=== PATIENT | female | born 1975 | race Caucasian/White ===

== ENCOUNTER 2016-09-28 09:30 | Emergency (ER) | payer MEDICARE ==
[~2016-09-28] VITALS: Ht 157.5 cm; Wt 74.8 kg
[~2016-09-28 09:30] MED LIST: ARIP10TA2 PO; ARIP30TA PO; ATOR20TA66 PO; CLON1TAB2; DIAZ-345 PO; DIAZ5TAB3 PO; ESTR-21 PO; ESTR1TAB24; ESTR2TAB PO; FAMO-119 PO; FENT1PAT11 TD; GUAN2TAB PO; HYDR-2889 PO; HYDR-3820 PO; HYDR50CA3; LAMO100T69 PO; LEVE500T6; LITH600C; LRZ1T; LTH150C; METH10TA3 PO; NF-CYM60C; NITR-65 PO; NSTU5; PHEN-452 PO; PHN100C; PRD20T PO; PRM50SU PR; PROM25TA14 PO; QTP200T; SERT100T PO; SERT50TA; SERT50TA2 PO; SERT50TA9 PO; TERBIN250T PO; VICODIN 7.5/500; ZLP10T; ZOLP10TA PO; ZOLP10TA5 PO
--- OUTSIDE RECORDS SUMMARY | 2016-09-28 09:35 | XMS REPORT | Continuity of Care Document ---
Author Author [facility] Organization [facility] Address Unknown Phone Unavailable Care Team Providers Care Ambulatory Care Coordinator Name Role Phone BillieRic pozo PCP [phone] Source Comments Some departments are not documenting in the electronic medical record. If you do not see the information that you expected, contact Release of Information in the Health Information Management department at [phone] for further assistance in locating additional records.[facility] Active Allergies and Adverse Reactions Allergen Noted Date Severity Reactions Comments Brethine 08/04/2010 SEE COMMENTS "I went in cardiac arrest" Depakote 08/04/2010 UNKNOWN Tegretol 08/04/2010 FEVER, HEADACHE, NAUSEA AND VOMITING Toradol 08/04/2010 HIVES, RASH, ITCHING, REDNESS Trazodone 08/04/2010 SHORTNESS OF BREATH, MENTAL STATUS CHANGES Trileptal 08/04/2010 FEVER, HEADACHE, NAUSEA "senses are heightened, AND VOMITING, SEE can't talk, can't eat" COMMENTS Current Medications Prescription Sig. Disp. Refills Start End Date Status Date estradiol (ESTRACE) 1 mg Take 2 mg by mouth Daily. Active PO tablet hydrOXYzine (ATARAX) 10 Take 50 mg by mouth Three Active mg PO tablet Times Daily. clonazepam (KLONOPIN) 1 Take 1 mg by mouth Three Active mg PO tablet Times Daily. Albuterol (Refill) 90 Inhale 1 [place] by mouth Active mcg/Actuation IN Aero Every 6 Hours as needed. quetiapine (SEROQUEL) 400 Take 400 mg by mouth At 08/04/20 Active mg PO tablet Bedtime Daily. 10 oxycodone/acetaminophen Take 1 Tab by mouth Every 30 Tab 0 08/07/20 Active (PERCOCET) 10/325 mg PO 4 Hours as needed for 10 tablet Pain. lidocaine (LIDODERM) 5 % 1 Patch Every 24 Hours as 30 Patch 0 Active TP topical patch needed (apply for 12 10 hours then remove for 12 hours.). haloperidol (HALDOL) 2 mg Take 1 Tab by mouth Twice 60 Tab 0 08/07/20 Active PO tablet Daily as needed. 10 Active Problems Problem Noted Date Seizures (HCC) 08/04/2010 Social History Tobacco Use Types Packs/Day Years Used Date Never Smoker Smokeless Tobacco: Never Used Alcohol Use Drinks/Week oz/Week Comments No Last Filed Vital Signs Vital Sign Reading Time Taken Blood Pressure 120/84 08/07/2010 4:16 PM [employer] Pulse 87 08/07/2010 4:16 PM [employer] Temperature 37.2 C (99 F) 08/07/2010 4:16 PM [employer] Respiratory Rate - - Height 1.549 m (5' 1") 08/04/2010 12:50 PM [employer] Weight 82.4 kg (181 lb 10.5 oz) 08/04/2010 12:50 PM [employer] Body Mass Index 34.34 08/04/2010 12:50 PM [employer] Oxygen Saturation 97% 08/07/2010 4:16 PM [employer] Plan of Care Health Maintenance Due Date Last Done Comments Physical (Comprehensive) 1984 Exam Pertussis Vaccine 1988 Tetanus Vaccine 1994 Cervical Cancer Screening 1998 Influenza Vaccine 05/20/2016 Results from Last 3 Months Not on file
[2016-09-28] MEDS ORDERED: NS IV 1000 ML 1,000 ML IV ONE (09:37)
[2016-09-28] MEDS ORDERED: LORazepam INJ 2 MG/ML (ATIVAN) VIAL ONE (09:42)
[2016-09-28 09:50] LABS: BASOPHILS % (AUTO) 0 % (0-10); EOSINOPHILS # (AUTO) 0.2 10^3/uL (0.0-0.3); EOSINOPHILS % (AUTO) 4 % (0-10); LYMPHOCYTES # (AUTO) 1.9 X 10^3 (1.0-4.0); LYMPHOCYTES % (AUTO) 35 % (12-44); MEAN CORPUSCULAR HEMOGLOBIN 30 PG (25-34); MEAN CORPUSCULAR HGB CONC 34 G/DL (32-36); MEAN CORPUSCULAR VOLUME 87 FL (80-99); MEAN PLATELET VOLUME 9.2 FL (7.4-10.4); MONOCYTES # (AUTO) 0.3 X 10^3 (0.0-1.0); MONOCYTES % (AUTO) 6 % (0-12); NEUTROPHILS % (AUTO) 54 % (42-75); PLATELET COUNT 286 10^3/uL (130-400); RED BLOOD COUNT 3.98 10^6/uL (4.35-5.85); RED CELL DISTRIBUTION WIDTH 11.7 % (10.0-14.5); WHITE BLOOD COUNT 5.5 10^3/uL (4.3-11.0)
--- NOTE | 2016-09-28 09:58 | ED Neurological Problem ---
General Stated Complaint: SEIZURE ACTIVITY Source: patient Exam Limitations: clinical condition History of Present Illness Time seen by provider: 09:30 Initial Comments Here with report by EMS of having multiple seizures today. EMS did give Versed intranasal which didn't help. Patient reportedly had multiple seizures. On arrival she would follow some commands but had persistent muscle tension in the arms and the legs. She did respond to pain. History otherwise unobtainable from the patient. Previous history shows history of pseudoseizures Timing/Duration: 1/2 hour Severity: moderate Associated Symptoms: seizures Allergies and Home Medications Allergies Coded Allergies: carbamazepine (Unverified Allergy, Unknown, 06/17/11) divalproex sodium (Unverified Allergy, Unknown, 06/10/15) ketorolac (Unverified Allergy, Unknown, 06/10/15) levetiracetam (Unverified Allergy, Unknown, 06/10/15) oxcarbazepine (Unverified Allergy, Unknown, 06/10/15) phenytoin (Unverified Allergy, Unknown, 06/10/15) terbutaline (Verified Adverse Reaction, Severe, 09/03/08) "STOPPED MY BREATHING" trazodone (Verified Adverse Reaction, Intermediate, 09/03/08) "SLOWS MY BREATHING" Home Medications Atorvastatin Calcium 20 Mg Tablet 20 MG PO DAILY (Reported) Diazepam 5 Mg Tablet 1 EACH PO TID (Reported) Estradiol 2 Mg Tablet 2 MG PO DAILY (Reported) Famotidine 20 Mg Tablet #30 20 MG PO BID Prescribed by: LULY REYES on 07/24/152112 Fentanyl 1 Each Patch.td72 100 MCG TD Q72H (Reported) Guanfacine HCl 2 Mg Tablet 2 MG PO HS (Reported) Hydrocodone/Acetaminophen 1 Each Tablet 1 EACH PO QID (Reported) Lamotrigine 100 Mg Tablet 100 MG PO BID (Reported) Methylphenidate HCl 10 Mg Tablet 10 MG PO BID (Reported) Phentermine HCl 30 Mg Capsule 30 MG PO BID (Reported) Prednisone 20 Mg Tab #10 20 MG PO BID Prescribed by: LULY REYES on 07/24/152112 Promethazine HCl 25 Mg Tablet 25 MG PO TID (Reported) Sertraline HCl 100 Mg Tablet 100 MG PO DAILY (Reported) Terbinafine 250 Mg Tab 250 MG PO DAILY (Reported) Zolpidem Tartrate 10 Mg Tablet 10 MG PO HS (Reported) Constitutional: see HPI Other Unable to complete review of systems due to altered mental status and seizures Past Okdglkj-Wmifyt-Smmjzv Hx Patient Social History Smoking Status: Unknown if Ever Smoked Surgeries HX Surgeries: Yes Surgeries: Appendectomy, Section, Gallbladder, Hysterectomy Respiratory Hx Respiratory Disorders: Yes (ASTHMA) Respiratory Disorders: Asthma Cardiovascular Hx Cardiac Disorders: No Neurological Hx Neurological Disorders: Yes Neurological Disorders: Seizure Disorder Reproductive System Hx Reproductive Disorders: Yes 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 Genitourinary Hx Genitourinary Disorders: No Gastrointestinal Hx Gastrointestinal Disorders: Yes Gastrointestinal Disorders: Gastroesophageal Reflux, Chronic Constipation, Pancreatitis, Gall Bladder Disease Musculoskeletal Hx Musculoskeletal Disorders: Yes (CHRONIC GENERALIZED PAIN) Musculoskeletal Disorders: Chronic Back Pain Endocrine Hx Endocrine Disorders: No HEENT HX ENT Disorders: No Cancer Hx Cancer: No Psychosocial Hx Psychiatric Problems: Yes (BI-POLAR, PTSD, OVERDOSES, ADMITTED TO [place] IN PAST) Behavioral Health Disorders: Pseudo Seizures, Anxiety, PTSD, Suicide Attempts, Bipolar, Depression Integumentary HX Skin/Integumentary Disorder: No Blood Transfusions Hx Blood Disorders: No Family Medical History Significant Family History: No Pertinent Family Hx Other History per records review Physical Exam Vital Signs Capillary Refill : General Appearance: WD/WN no apparent distress HEENT: PERRL/EOMI pharynx normal Neck: full range of motion supple Respiratory: lungs clear normal breath sounds Cardiovascular: regular rate, rhythm no murmur Peripheral Pulses: 2+ Dorsalis Pedis (R), 2+ Left Dors-Pedis (L), 2+ Radial Pulses (R), 2+ Radial Pulses (L) Gastrointestinal: non tender soft Skin: normal color warm/dry Comments Patient initially responded somewhat to pain and follows a few simple commands including opening her mouth and eyes for evaluation. After exam, she had persistent flexion of muscles keeping her arms and legs straight. O2 sats remained at 100 percent and heart rate 70. Progress/Results/Core Measures Results/Orders Lab Results Laboratory Tests Test 09/28/16 09:40 09/28/16 10:00 Range/Units Alanine Aminotransferase (ALT/SGPT) 32 0-55 U/L Albumin 4.0 3.2-4.5 G/DL Alkaline Phosphatase 67 40-136 U/L Anion Gap 9 5-14 MMOL/L Aspartate Amino Transf (AST/SGOT) 32 5-34 U/L BUN/Creatinine Ratio 9 Basophils # (Auto) 0.0 0.0-0.1 10^3/uL Basophils (%) (Auto) 0 0-10 % Blood Urea Nitrogen 6 L 7-18 MG/DL Calcium Level 9.0 8.5-10.1 MG/DL Carbon Dioxide Level 22 21-32 MMOL/L Chloride Level 109 H 98-107 MMOL/L Creatinine 0.66 0.60-1.30 MG/DL Eosinophils # (Auto) 0.2 0.0-0.3 10^3/uL Eosinophils (%) (Auto) 4 0-10 % Estimat Glomerular Filtration Rate > 60 Glucose Level 100 70-105 MG/DL Hematocrit 35 35-52 % Hemoglobin 11.8 11.5-16.0 G/DL Lymphocytes # (Auto) 1.9 1.0-4.0 X 10^3 Lymphocytes (%) (Auto) 35 12-44 % Mean Corpuscular Hemoglobin 30 25-34 PG Mean Corpuscular Hemoglobin Concent 34 32-36 G/DL Mean Corpuscular Volume 87 80-99 FL Mean Platelet Volume 9.2 7.4-10.4 FL Monocytes # (Auto) 0.3 0.0-1.0 X 10^3 Monocytes (%) (Auto) 6 0-12 % Neutrophils # (Auto) 3.0 1.8-7.8 X 10^3 Neutrophils (%) (Auto) 54 42-75 % Platelet Count 286 130-400 10^3/uL Potassium Level 3.6 3.6-5.0 MMOL/L Red Blood Count 3.98 L 4.35-5.85 10^6/uL Red Cell Distribution Width 11.7 10.0-14.5 % Serum Test, Qualitative NEGATIVE NEGATIVE Sodium Level 140 135-145 MMOL/L Total Bilirubin 0.1 0.1-1.0 MG/DL Total Protein 7.0 6.4-8.2 G/DL White Blood Count 5.5 4.3-11.0 10^3/uL Ur Tricyclic Antidepressants Screen NEGATIVE NEGATIVE Urine Amphetamines Screen NEGATIVE NEGATIVE Urine Bacteria NEGATIVE /HPF Urine Barbiturates Screen NEGATIVE NEGATIVE Urine Benzodiazepines Screen NEGATIVE NEGATIVE Urine Bilirubin NEGATIVE NEGATIVE Urine Cannabinoids Screen NEGATIVE NEGATIVE Urine Casts NONE /LPF Urine Clarity CLEAR Urine Cocaine Screen NEGATIVE NEGATIVE Urine Color YELLOW Urine Crystals NONE /LPF Urine Culture Indicated NO Urine Glucose (UA) NEGATIVE NEGATIVE Urine Ketones NEGATIVE NEGATIVE Urine Leukocyte Esterase NEGATIVE NEGATIVE Urine Methadone Screen NEGATIVE NEGATIVE Urine Methamphetamines Screen NEGATIVE NEGATIVE Urine Mucus SMALL H /LPF Urine Nitrite NEGATIVE NEGATIVE Urine Opiates Screen POSITIVE H NEGATIVE Urine Oxycodone Screen NEGATIVE NEGATIVE Urine Phencyclidine Screen NEGATIVE NEGATIVE Urine Propoxyphene Screen NEGATIVE NEGATIVE Urine Protein NEGATIVE NEGATIVE Urine RBC NONE /HPF Urine RBC (Auto) NEGATIVE NEGATIVE Urine Specific [place] 1.020 1.016-1.022 Urine Squamous Epithelial Cells 0-2 /HPF Urine Urobilinogen NORMAL NORMAL MG/DL Urine WBC RARE /HPF Urine pH 5 5-9 My Orders Orders-XIOMARA OTTO MD Cbc With Automated Diff (09/28/16 09:37) Comprehensive Metabolic Panel (09/28/16 09:37) Drug Screen Stat (Urine) (09/28/16 09:37) Hcg,Qualitative Serum (09/28/16 09:37) Ua Culture If Indicated (09/28/16 09:37) Saline Lock/Iv-Start (09/28/16 09:37) Ns Iv 1000 Ml (Sodium Chloride 0.9%) (09/28/16 09:37) Lorazepam Injection (Ativan Injection) (09/28/16 09:42) Lorazepam Injection (Ativan Injection) (09/28/16 10:00) Medications Given in ED Current Medications Medications Dose Ordered Sig/[place] Route Start Time Stop Time Status Last Admin Dose Admin Lorazepam 2 mg STK-MED ONCE .ROUTE 09/28/16 09:42 09/28/16 09:50 DC 09/28/16 10:05 2 MG Sodium Chloride 1,000 ml @ 0 mls/hr Q0M ONCE IV 09/28/16 09:37 09/28/16 09:38 DC 09/28/16 10:13 1,000 MLS/HR Progress Note : Progress Note Seen and evaluated on arrival by EMS. Records reviewed after exam. IV, labs, UA and UDS ordered. Patient had persistence of episodes of muscle tightening that is not in the appearance of typical seizures but there is concerns for seizure history. Her computer reviewed does represent pseudoseizures in her history. She is allergic to the typical antiseizure medicines. Ativan 2 mg IV given due to persistence of symptoms. We did evaluate patient for any skin patches including fentanyl patch for which she is known to have. None found. UA obtained via straight catheter. Monitor patient. 1050: Family is here as well as friends. Patient reportedly had multiple seizures and one of these occurred while driving. Overall she is resolved now and talking. She has a doctor in [place] and she will follow-up with him related to seizure medicines. They are adjusting her medicines currently. Patient agreed with follow-up. She will go home with family and will be monitored. Discharged home with return precautions. Patient verbalize understanding instructions and agreement with plan. Departure Impression Impression: Primary Impression: Convulsions Qualified Code: R56.9 - Unspecified convulsions Disposition: HOME, SELF-CARE Condition: Improved Departure-Patient Inst. Decision time for Depature: 10:57 Referrals: NO,LOCAL PHYSICIAN (PCP/Family) Primary Care Physician Patient Instructions: Seizures, Adult (DC) Add. Discharge Instructions: Take home medications as directed. No driving until your cleared by her physician. Do not perform activities increase your risk of injury or risk of injury to other people if a seizure were to occur such as driving, climbing to heights, soaking in a bathtub by herself or other such activities. Return for worse pain, fever, vomiting, weakness, breathing problems or other concerns as needed. Follow-up with your DrGuanaco in one to 2 days. XIOMARA OTTO MD Sep 28, 2016 09:58
[2016-09-28] MEDS ORDERED: LORazepam INJ 2 MG/ML (ATIVAN) VIAL IVP ONE (10:00)
[2016-09-28 10:06] LABS: BILIRUBIN,URINE NEGATIVE (NEGATIVE); KETONES,URINE NEGATIVE (NEGATIVE); LEUKOCYTE ESTERASE ,URINE NEGATIVE (NEGATIVE); NITRITE,URINE NEGATIVE (NEGATIVE); PH,URINE 5 (5-9); PROTEIN,URINE NEGATIVE (NEGATIVE); UROBILINOGEN,URINE NORMAL (NORMAL)
[2016-09-28 10:09] LABS: ALANINE AMINOTRANSFERASE 32 U/L (0-55); ANION GAP 9 MMOL/L (5-14); ASPARTATE AMINO TRANSFERASE 32 U/L (5-34); BILIRUBIN,TOTAL 0.1 MG/DL (0.1-1.0); BLOOD UREA NITROGEN 6 MG/DL (7-18); BUN/CREATININE RATIO 9; CARBON DIOXIDE 22 MMOL/L (21-32); CHLORIDE 109 MMOL/L (98-107); CREATININE SERUM 0.66 MG/DL (0.60-1.30); GFR ESTIMATED > 60; GLUCOSE 100 MG/DL (70-105); POTASSIUM 3.6 MMOL/L (3.6-5.0); SODIUM 140 MMOL/L (135-145)
[2016-09-28 10:31] LABS: SQUAMOUS EPITHELIAL CELL,UR 0-2 /HPF; WBC,URINE RARE /HPF
[2016-09-28 11:15] VITALS: BP 136/87
== END 2016-09-28 11:15 | disposition home or self-care (01) ==
LOC: EDUNIT# 09:30 → ER 09:32
DX: G40.909 Epilepsy, unspecified, not intractable, without status epilepticus (principal); Z79.899 Other long term (current) drug therapy
CPT/HCPCS: 36415; 51701; 80053; 80306; 81000; 84703; 85025; 96361; 96374

== ENCOUNTER 2017-04-04 06:05 | Emergency (ER) | payer MEDICARE ==
[~2017-04-04] VITALS: Ht 180.3 cm; Wt 76.2 kg
[2017-04-04] MEDS ORDERED: BUPR1PAT3 (06:13)
[2017-04-04] MEDS ORDERED: LISI10TA2 (06:13)
[2017-04-04] MEDS ORDERED: fentaNYL INJECTION 100 MCG/2 ML AMP ONE (06:18)
[2017-04-04] MEDS ORDERED: fentaNYL INJECTION 100 MCG/2 ML AMP IVP ONE (06:30)
[2017-04-04 06:35] LABS: MEAN PLATELET VOLUME 9.8 FL (7.4-10.4); RED BLOOD COUNT 4.16 10^6/uL (4.35-5.85); RED CELL DISTRIBUTION WIDTH 12.1 % (10.0-14.5); WHITE BLOOD COUNT 6.4 10^3/uL (4.3-11.0)
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
[2017-04-04] MEDS ORDERED: diphenhydrAMINE 50 MG/ML INJ (BENADRYL) IVP ONE ×2 (06:45→07:45)
[2017-04-04 06:52] LABS: ALANINE AMINOTRANSFERASE 19 U/L (0-55); ALBUMIN 3.9 GM/DL (3.2-4.5); ALCOHOL < 10 MG/DL (<10); ANION GAP 10 MMOL/L (5-14); ASPARTATE AMINO TRANSFERASE 17 U/L (5-34); BILIRUBIN,DIRECT 0.1 MG/DL (0.0-0.3); BILIRUBIN,INDIRECT 0.3 MG/DL; BILIRUBIN,TOTAL 0.4 MG/DL (0.1-1.0); BLOOD UREA NITROGEN 10 MG/DL (7-18); BUN/CREATININE RATIO 16; CALCIUM 9.3 MG/DL (8.5-10.1); CARBON DIOXIDE 24 MMOL/L (21-32); CHLORIDE 104 MMOL/L (98-107); CREATININE SERUM 0.64 MG/DL (0.60-1.30); GFR ESTIMATED > 60; GLUCOSE 101 MG/DL (70-105); SODIUM 138 MMOL/L (135-145); TOTAL PROTEIN 7.1 GM/DL (6.4-8.2)
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
[2017-04-04] MEDS ORDERED: IBUPROFEN 800 MG (MOTRIN) TAB PO ONE (08:45)
[2017-04-04 08:52] LABS: BILIRUBIN,URINE NEGATIVE (NEGATIVE); KETONES,URINE NEGATIVE (NEGATIVE); LEUKOCYTE ESTERASE ,URINE 1+ (NEGATIVE); NITRITE,URINE NEGATIVE (NEGATIVE); PH,URINE 5 (5-9); PROTEIN,URINE NEGATIVE (NEGATIVE); UROBILINOGEN,URINE NORMAL (NORMAL)
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
[2017-04-04 09:03] LABS: SQUAMOUS EPITHELIAL CELL,UR RARE /HPF; WBC,URINE RARE /HPF
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
[2017-04-04] MEDS ORDERED: morphine INJ 10 MG/ML 1ML (SYR OR VIAL) IVP ONE (10:15)
[2017-04-04] MEDS ORDERED: hydrOXYzine (VISTARIL) 25 MG CAP PO ONE (10:15)
[2017-04-04 10:22] VITALS: BP 115/74
== END 2017-04-04 10:22 | disposition home or self-care (01) ==
LOC: EDUNIT# 06:05 → ER 06:07
DX: S22.050A Wedge compression fracture of T5-T6 vertebra, initial encounter for closed fracture (principal); S22.060A Wedge compression fracture of T7-T8 vertebra, initial encounter for closed fracture; M79.605 Pain in left leg; F41.9 Anxiety disorder, unspecified; F43.10 Post-traumatic stress disorder, unspecified; F31.9 Bipolar disorder, unspecified; K21.9 Gastro-esophageal reflux disease without esophagitis; G40.909 Epilepsy, unspecified, not intractable, without status epilepticus; E78.00 Pure hypercholesterolemia, unspecified; I10 Essential (primary) hypertension; J45.909 Unspecified asthma, uncomplicated; Z90.49 Acquired absence of other specified parts of digestive tract; Z90.89 Acquired absence of other organs; Z90.710 Acquired absence of both cervix and uterus; V89.2XXA Person injured in unspecified motor-vehicle accident, traffic, initial encounter
CPT/HCPCS: 36415; 70450; 71010; 72125; 72128; 72131; 72170; 73552; 73562; 73590; 80048; 80076; 80306; 80320; 81000; 84703; 85027; 93041; 96374; 96375; 96376

== ENCOUNTER 2017-04-12 18:07 | Emergency (ER) | payer MEDICARE ==
[~2017-04-12] VITALS: Ht 154.9 cm; Wt 72.6 kg
[~2017-04-12 18:07] MED LIST changes: +BUPR1PAT3; +LISI10TA2
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
[2017-04-12] MEDS ORDERED: LIDO700A45 TP (21:02)
[2017-04-12 21:06] VITALS: BP 0/0
== END 2017-04-12 21:06 | disposition home or self-care (01) ==
LOC: EDUNIT# 18:07 → ER 18:10
DX: M46.1 Sacroiliitis, not elsewhere classified (principal); M79.605 Pain in left leg; F31.9 Bipolar disorder, unspecified; F41.9 Anxiety disorder, unspecified; F43.10 Post-traumatic stress disorder, unspecified; K21.9 Gastro-esophageal reflux disease without esophagitis; K59.09 Other constipation; G40.909 Epilepsy, unspecified, not intractable, without status epilepticus; J45.909 Unspecified asthma, uncomplicated; Z90.710 Acquired absence of both cervix and uterus; Z90.49 Acquired absence of other specified parts of digestive tract; Z91.5 Personal history of self-harm
CPT/HCPCS: 99281

== ENCOUNTER → 2017-12-27 | Outpatient (CLI) | payer BC, MEDICARE ==
[~2017-12-27] MED LIST changes: +HYDR-753 PO; +HYDR100T24 PO; +LIDO700A45 TP; +LISI10TA2 PO; -PHEN-452 PO; +PHEN30CA2 PO
--- NOTE | 2017-12-27 16:54 | Diagnostic Imaging Report ---
EXAMINATION: Magnetic resonance imaging of the left ankle without contrast. DATE: December 27, 2017. COMPARISON: None. HISTORY: 42-year-old female, bulge at the lateral aspect of the left foot/ankle for several months. Increasing pain. TECHNIQUE: Magnetic Resonance Imaging sequences were performed of the ankle without contrast. FINDINGS: TENDONS AND LIGAMENTS: The Achilles tendon is unremarkable. The posterior flexor tendons - tibialis posterior, flexor digitorum longus, flexor hallucis longus - are intact. The peroneal tendons - peroneus longus and peroneus brevis - are intact. The anterior extensor tendons - tibialis anterior, extensor hallucis longus and extensor digitorum longus tendons - are intact. The anterior and posterior syndesmotic ligaments are intact. The anterior talofibular, posterior talofibular, calcaneofibular and deltoid ligaments are intact. The plantar fascia is intact. JOINTS: The ankle mortise is intact. The subtalar and visualized joints of the mid-foot are intact. BONE: The bones all have normal configuration. There is edema-like signal in the lateral aspect of the lower calcaneus which is near the marker denoting the area of focal patient concern with adjacent abnormal signal in the subjacent subcutaneous tissues, which does abut the bone with the overall extent of area of abnormal low T1 signal within the subcutaneous tissues measuring approximately 9 x 5 x 9 mm in size. There is no identified fracture line. There is no identified cortical bone destruction. The additional bone marrow signal is unremarkable. The talar dome is intact. BURSAE AND SOFT TISSUES: As mentioned above, there is a focal and somewhat mass-like area of low T1 signal adjacent to the lateral and inferior aspect of the calcaneus, which is at the area of marked palpable concern. There is adjacent subcutaneous edema as well. Postcontrast imaging was not performed. IMPRESSION: 1. Abnormal but nonspecific somewhat mass-like area of low T1 marrow signal within the subcutaneous tissues adjacent to the lateral and inferior margin of the calcaneus in the region of palpable concern measuring approximately 9 x 5 x 9 mm in extent with adjacent bone marrow edema and no definite cortical bone destruction or periosteal reaction. There is adjacent nonspecific subcutaneous edema. Postcontrast imaging was not performed to assess for potential contrast enhancement. This does limit evaluation for possibility of neoplasm. This abnormal signal in the soft tissues is entirely nonspecific. A neoplastic etiology is difficult to exclude. Bone contusion and potentially stress-related marrow edema would be differential causes for the marrow edema; however, the adjacent somewhat mass-like soft tissue prominence would be unusual for either consideration. Infectious etiology could also be considered, although a definite skin ulcer is not identified. Pre- and post-contrast MRI with targeted field of view at the area of specific patient concern may potentially provide additional diagnostic information. Correlation clinically is also recommended. 2. Additional MRI evaluation of the left ankle is unremarkable. Dictated by: Dictated on workstation # [id number]
== END ==
LOC: RAD 15:30
PROVIDERS: ATTEND Podiatrist Foot & Ankle Surgery
DX: T14.8XXA Other injury of unspecified body region, initial encounter (principal); R60.0 Localized edema

== ENCOUNTER 2017-12-29 11:02 | Outpatient (CLI) | payer BC, MEDICARE ==
[~2017-12-29] VITALS: Ht 154.9 cm; Wt 75.0 kg
[~2017-12-29 11:02] MED LIST changes: -HYDR-753 PO; -HYDR100T24 PO; -LISI10TA2 PO
[2017-12-29] MEDS ORDERED: HYDR100T24 PO (11:18)
[2017-12-29] MEDS ORDERED: DIAZ5TAB3 PO (11:18)
[2017-12-29] MEDS ORDERED: HYDR-753 PO (11:18)
[2017-12-29] MEDS ORDERED: LISI10TA2 PO (11:18)
[2017-12-29 11:31] VITALS: BP 130/92
== END 2017-12-29 12:49 ==
LOC: PREOP 11:02
PROVIDERS: ATTEND Podiatrist Foot & Ankle Surgery
DX: Z01.818 Encounter for other preprocedural examination (principal); L98.9 Disorder of the skin and subcutaneous tissue, unspecified
CPT/HCPCS: 87081

== ENCOUNTER 2018-01-06 11:37 | Day surgery (SDC) | payer BC, MEDICARE ==
[~2018-01-06] VITALS: Ht 154.9 cm; Wt 75.0 kg
[~2018-01-06 11:37] MED LIST changes: +HYDR-753 PO; +HYDR100T24 PO; +LISI10TA2 PO
--- OUTSIDE RECORDS SUMMARY | 2018-01-06 11:41 | XMS REPORT | Encounter Summary ---
Author Author [facility] Organization [facility] Address Unknown Phone Unavailable Care Team Providers Care Privacy Compliance Manager Name Role Phone Ric Maya MD PCP Tami Barr APRN- Unavailable Anika Barrios MD Unavailable Encounter Details Date Type Department Care Team Description 12/21/2017 Ancillary Rad Outpatient, Radiologist Orders [address] [place] [address] Social History Tobacco Use Types Packs/Day Years Used Date Never Smoker Smokeless Tobacco: Never Used Alcohol Use Drinks/Week oz/Week Comments No Sex Assigned at Date Recorded Not on file as of this encounter Plan of Treatment Not on fileas of this encounter Results * GENERAL RAD LOWER EXT EXTERNAL IMAGING (04/04/2017 12:45 AM) Narrative This order has been auto finalized and does not contain a result. * GENERAL RAD LOWER EXT EXTERNAL IMAGING (04/04/2017 12:30 AM) Narrative This order has been auto finalized and does not contain a result. * GENERAL RAD CHEST EXTERNAL IMAGING (04/04/2017 12:15 AM) Narrative This order has been auto finalized and does not contain a result. * CT HEAD EXTERNAL IMAGING (04/04/2017) Narrative This order has been auto finalized and does not contain a result. in this encounter Visit Diagnoses Not on filein this encounter
--- OUTSIDE RECORDS SUMMARY | 2018-01-06 11:41 | XMS REPORT | Clinical Summary ---
Author Author [facility] Organization [facility] Address Unknown Phone Unavailable Care Team Providers Care Spinner Concrete Pipe Name Role Phone Ric Maya MD [facility]CP [facility] Unavailable Anika Barrios MD Unavailable Source Comments Some departments are not documenting in the electronic medical record. If you do not see the information that you expected, contact Release of Information in the Health Information Management department at [phone] for further assistance in locating additional records.[facility] Allergies Active Allergy Reactions Severity Noted Date Comments Terbutaline SEE COMMENTS 08/04/2010 "I went in cardiac arrest" Divalproex UNKNOWN 08/04/2010 Phenytoin Sodium Extended SHORTNESS OF BREATH Medium 12/28/2017 Levetiracetam SHORTNESS OF BREATH High 12/28/2017 Carbamazepine FEVER, HEADACHE, NAUSEA 08/04/2010 AND VOMITING Ketorolac HIVES, RASH, ITCHING, 08/04/2010 REDNESS Trazodone SHORTNESS OF BREATH, 08/04/2010 MENTAL STATUS CHANGES Oxcarbazepine FEVER, HEADACHE, NAUSEA 08/04/2010 "senses are heightened , AND VOMITING, SEE can't talk, can't eat" COMMENTS Current Medications Prescription Sig. Disp. Refills Start End Date Status Date Albuterol (Refill) 90 Inhale 1 Hyrum by mouth Active mcg/Actuation IN Aero Every 6 Hours as needed. HYDROCODONE/ACETAMINOPHEN Take 10 mg by mouth daily Active (NORCO PO) as needed. lisinopril (PRINIVIL; Take 10 mg by mouth Active ZESTRIL) 10 mg tablet daily. HYDROCODONE BITARTRATE Take 100 mg by mouth Active (HYSINGLA ER PO) daily. zolpidem (AMBIEN) 10 mg Take 10 mg by mouth at Active tablet bedtime as needed for Sleep. diazePAM (VALIUM) 10 mg Take 5 mg by mouth every Active tablet 6 hours as needed for Anxiety. estradiol (ESTRACE) 1 mg Take 2 mg by mouth Daily. 12/29/19 Discontin PO tablet 18 ued hydrOXYzine (ATARAX) 10 Take 50 mg by mouth Three 12/29/19 Discontin mg PO tablet Times Daily. 18 ued clonazepam (KLONOPIN) 1 Take 1 mg by mouth Three 12/29/19 Discontin mg PO tablet Times Daily. 18 ued quetiapine (SEROQUEL) 400 Take 400 mg by mouth At 08/04/20 12/29/19 Discontin mg PO tablet Bedtime Daily. 10 18 ued oxycodone/acetaminophen Take 1 Tab by mouth Every 30 Tab 0 08/07/20 12/29/19 Discontin (PERCOCET) 10/325 mg PO 4 Hours as needed for 10 18 ued tablet Pain. lidocaine (LIDODERM) 5 % 1 Patch Every 24 Hours as 30 Patch 0 12/29/19 Discontin TP topical patch needed (apply for 12 10 18 ued hours then remove for 12 hours.). haloperidol (HALDOL) 2 mg Take 1 Tab by mouth Twice 60 Tab 0 08/07/20 12/29/19 Discontin PO tablet Daily as needed. 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 Nonepileptic episode (HCC) 08/04/2010 Encounters Date Type Specialty Care Team Description 12/28/2017 Office Visit Neurology Theodore Holt DO Nonepileptic episode (HCC) (Primary Dx); Bilateral hand numbness; Pain of left lower extremity; Generalized weakness; Somatoform disorder 12/21/2017 Ancillary Radiology Outpatient, Radiologist Orders from Last 3 Months Family History Medical History Relation Name Comments Asthma Father Brian Cancer Father Brian Hodgkin's Heart Attack Father Brian High Cholesterol Father Brian Heart Disease Maternal Grandfather Arthritis-rheumatoid Mother Siomara Depression Mother Siomara Hypertension Mother Siomara Other Mother Siomara Bipolar disorder, anxiety, PTSD Rashes/Skin Problems Mother Siomara Eczema Renal problems Sister Relation Name Status Comments Father Brian Maternal Grandfather Alive Maternal Grandmother Alive Mother Siomara Alive Paternal Grandfather Paternal Grandmother Sister Alive Sister Alive Social History Tobacco Use Types Packs/Day Years Used Date Never Smoker Smokeless Tobacco: Never Used Alcohol Use Drinks/Week oz/Week Comments No Sex Assigned at Date Recorded Not on file Last Filed Vital Signs Vital Sign Reading Time Taken Blood Pressure 130/91 12/28/2017 9:09 AM CDT Pulse 77 12/28/2017 9:09 AM CDT Temperature 36.8 C (98.3 F) 12/28/2017 9:09 AM CDT Respiratory Rate 16 12/28/2017 9:09 AM CDT Oxygen Saturation 95% 12/28/2017 9:09 AM CDT Inhaled Oxygen - - Concentration Weight 74.8 kg (164 lb 12.8 oz) 12/28/2017 9:09 AM CDT Height 154.9 cm (5' 1") 12/28/2017 9:09 AM CDT Body Mass Index 31.14 12/28/2017 9:09 AM CDT Plan of Treatment Health Maintenance Due Date Last Done Comments PHYSICAL (COMPREHENSIVE) 1984 EXAM PERTUSSIS VACCINE 1988 HIV SCREENING 1992 TETANUS VACCINE 1994 CERVICAL CANCER SCREENING 2007 BREAST CANCER SCREENING 2017 INFLUENZA VACCINE 06/19/2018 Results Not on filefrom Last 3 Months
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
--- OUTSIDE RECORDS SUMMARY | 2018-01-06 11:41 | XMS REPORT | Continuity of Care Document ---
Author Author [facility] Organization [facility] Address Unknown Phone Unavailable Care Team Providers Care Rehabilitation Services Counselor Name Role Phone [employer] Unavailable Unavailable Problems Medications Allergies, Adverse Reactions, Alerts Immunizations Results Vital Signs Encounters Location Location Details Encounter Type Encounter Number Reason For Visit Attending Provider ADM Date DC Date Status Source OUTPATIENT [id number] SUSAN GATICA 06/23/2017 Active [facility] OUTPATIENT [id number] VERA HAQ 12/28/2017 Active [facility] O VERA HAQ 05/01/2018 Active [facility] Procedures Plan of Care Social History Assessment and Plan Family History Advance Directives Functional Status
--- OUTSIDE RECORDS SUMMARY | 2018-01-06 11:43 | XMS REPORT ---
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 Office visit Ric Maya MD 08/29/2013 Office visit Ric Maya MD 05/31/2013 Office visit Ric Maya MD 02/28/2013 Office visit Ric Maya MD 10/24/2012 Office visit Ric Maya MD 08/31/2012 Office visit Ric Maya MD 06/15/2012 Office visit KWADWO GARCIA 01/31/2012 Office visit Ric Maya MD 05/27/2011 Office visit Ric Maya MD 08/11/2010 Office visit Ric Maya MD 06/05/2010 Office visit Ric Maya MD 01/08/2010 Office visit Ric Maya MD 10/30/2009 Voided Ric Maya MD 10/30/2009 Office visit Ric Maya MD 10/16/2009 Office visit Ric Maya MD 10/13/2009 Office visit Kwadwo Lynn PA-C
[2018-01-06 11:45] VITALS: BP 137/84
--- OUTSIDE RECORDS SUMMARY | 2018-01-06 11:46 | XMS REPORT ---
Author Author Ric Maya [facility] Address [address] [facility] [address] [place], [place] [id number] Care Team Providers Care Customer Assistance Representative Name Role Phone Ric Maya PCP Ric Maya PreferredProvider Allergies and Adverse Reactions Name Reaction Notes Brethine Depakote Tegretol trazodone Trileptal Plan of Treatment Planned Activity Comments Planned Date Planned Time Plan/Goal Urine Drug Screen 06/11/2015 12:00 AM EMG 06/14/2017 12:00 AM CBC [...] 30 DAYS Ambien 10 mg oral tablet 11/22/2014 TAKE ONE TABLET BY MOUTH EVERY NIGHT AT BEDTIME Ambien 10 mg oral tablet 12/17/2014 TAKE ONE TABLET BY MOUTH AT BEDTIME Ambien 10 mg oral tablet 01/22/2015 TAKE ONE TABLET BY MOUTH AT BEDTIME guanfacine 1 mg oral tablet 04/18/2015 TAKE TWO TABLETS BY MOUTH AT BEDTIME nortriptyline 25 mg oral capsule take 1 capsule (25 mg) by oral route once daily at bedtime Abilify 5 mg oral tablet 10/27/2017 TAKE ONE TABLET BY MOUTH EVERY DAY Ambien 10 mg oral tablet 10/27/2017 take 1 tablet (10 mg) by oral route once daily at bedtime diazepam 5 mg oral tablet 10/27/2017 take 1 tablet (5 mg) by oral route 3 times per day as needed Ventolin HFA 90 mcg/actuation inhalation HFA aerosol inhaler 10/27/2017 inhale 2 puffs (180 mcg) by inhalation route every 6 hours as needed promethazine 25 mg oral tablet 10/27/2017 take 1 tablet (25 mg) by oral route every 4 hours as needed hydrocodone-acetaminophen 10-325 mg oral tablet 12/16/2017 01/15/2018 take 1 tablet by oral route every 6 hours as needed for pain for 30 days Hysingla ER 100 mg oral tablet,oral only,ext.rel.24 hr 12/16/2017 01/15/2018 take 1 tablet (100 mg) by oral route every 24 hours for 30 days Name Start Date Expiration [...] once daily at bedtime for 30 days estradiol 2 mg oral [...] oral route once daily for 30 days Cymbalta 30 mg oral capsule,delayed release(DR/EC) 09/10/2016 09/05/2017 take 1 capsule by oral route daily for 30 days amoxicillin 500 mg oral capsule 11/23/2016 12/08/2016 take 2 capsules by oral route 3 times a day for 5 days promethazine 25 mg oral tablet 05/16/2017 06/18/2017 TAKE ONE TABLET BY MOUTH EVERY 6 HOURS NEEDED Discontinued Name Start Date Discontinued Date SIG [...] bid HYDROCO/APAP 7.5-500TAB 7.5 each 10/08/2010 01/26/2011 [id number] - TAKE ONE TABLET BY MOUTH 4 [...] oral route once daily for 30 days atorvastatin 20 mg oral tablet 10/19/2013 take 1 tablet (20 mg) by oral route once daily for 30 days Butrans 20 mcg/hour transdermal patch weekly 02/14/2014 03/18/2014 APPLY ONE PATCH TO THE SKIN ONCE WEEKLY estradiol 2 mg oral tablet 08/26/2014 TAKE ONE TABLET BY MOUTH EVERY MORNING atorvastatin 20 mg oral tablet 12/23/2014 TAKE ONE TABLET BY MOUTH EVERY DAY FOR 30 DAYS atorvastatin 20 mg oral tablet 01/15/2015 10/27/2017 TAKE ONE TABLET BY MOUTH DAILY FOR 30 DAYS estradiol 2 mg oral tablet 04/14/2015 10/27/2017 TAKE ONE TABLET BY MOUTH EVERY MORNING guanfacine 1 mg oral tablet 05/14/2015 03/09/2017 [...] mcg/hour) by transdermal route every 72 hours Lyrica 150 mg oral capsule 07/14/2017 10/27/2017 take 1 capsule (150 mg) by oral route 2 times per day for 30 days Problem List Description Status Onset Asthma Active Bipolar disorder, unspecified Active Headache Active Seizure disorder Active Hypertension, Benign Essential Active 10/24/2012 Vital Signs Date Time BP-Sys(mm[Hg] BP-Elena(mm[Hg]) HR(bpm) RR(rpm) Temp WT HT HC BMI BSA BMI Percentile O2 Sat(%) 12/16/2017 10:19:00 AM 136 mmHg 88 mmHg 76 bpm 16 rpm 97.8 F 166 lbs 61 in 31.37 kg/m2 1.80 m2 98 % 11/23/2017 10:40:00 AM 116 mmHg 70 mmHg 59 bpm 18 rpm 96.7 F 168.5 lbs 61 in 31.8375 kg/m 1.8137 m 98 % 10/27/2017 3:29:00 PM 126 mmHg 74 mmHg 56 bpm 16 rpm 96.1 F 171.125 lbs 61 in 32.33 kg/m2 1.83 m2 99 % 08/25/2017 9:45:00 AM 122 mmHg 72 mmHg 77 bpm 97.7 F 173 lbs 98 % 07/14/2017 1:47:00 PM 124 mmHg 80 mmHg 56 bpm 14 rpm 97.4 F 169.125 lbs 97 % 06/29/2017 1:13:00 PM 138 mmHg 84 mmHg 78 bpm 14 rpm 97.2 F 166.5 lbs 61 in 31.4596 kg/m 1.8029 m 94 % 06/14/2017 10:21:00 AM 124 mmHg 66 mmHg 68 bpm 18 rpm 96.4 F 169.375 lbs 61 in 32.00 kg/m2 1.82 m2 97 % 05/10/2017 10:45:00 AM 124 mmHg 72 mmHg 71 bpm 18 rpm 96.2 F 168 lbs 61 in 31.743 kg/m 1.811 m 99 % 04/05/2017 1:45:00 PM 118 mmHg 82 mmHg 65 bpm 16 rpm 96.8 F 160 lbs 61 in 30.23 kg/m2 1.77 m2 97 % 03/09/2017 9:32:00 AM 110 mmHg 74 mmHg 62 bpm 16 rpm 7.4 F 160 lbs 61 in 30.2314 kg/m 1.7674 m 97 % 11/23/2016 1:25:00 PM 126 mmHg 68 mmHg 67 bpm 18 rpm 98 F 170.5 lbs 61 in 32.22 kg/m2 1.82 m2 97 % 09/10/2016 9:28:00 AM 132 mmHg 90 mmHg 72 bpm 18 rpm 97.6 F 176 lbs 61 in 33.2546 kg/m 1.8536 m 97 % 06/21/2016 10:08:00 AM 128 mmHg 70 mmHg 85 bpm 17 rpm 96.9 F 163 lbs 61 in 30.80 kg/m2 1.78 m2 98 % 03/18/2016 3:16:00 PM 130 mmHg 70 mmHg 89 bpm 20 rpm 97.4 F 167.25 lbs 61 in 31.6013 kg/m 1.807 m 98 % 11/18/2015 2:46:00 PM 118 mmHg 84 mmHg 68 bpm 17 rpm 97.2 F 152 lbs 61 in 28.72 kg/m2 1.72 m2 98 % 08/25/2015 9:52:00 AM 112 mmHg 72 mmHg 68 bpm 18 rpm 96 F 146 lbs 61 in 27.5862 kg/m 1.6883 m 99 % 06/11/2015 10:22:00 AM 78 bpm [...] EXAM OF KNEE 1 OR 2 Returned 05/10/2017 12:00 AM DXA BONE DENSITY AXIAL Reviewed 05/10/2017 12:00 AM Physical Therapy Consult Reviewed 06/15/2012 12:00 AM THER/PROPH/DIAG INJ SC/IM Reviewed 06/15/2012 12:00 AM Decadron, Per [address] [facility]# [address]-89 Reviewed 06/15/2012 12:00 AM Depo-Medrol, Per [address] [facility]#8971-2449-50 Reviewed 06/15/2012 12:00 AM Rocephin [address] [facility]#8935-1541-36 Reviewed 06/14/2017 12:00 AM COMPLETE CBC W/AUTO DIFF WBC Returned 06/14/2017 12:00 AM COMPREHEN METABOLIC PANEL Returned 06/14/2017 12:00 AM ASSAY THYROID STIM HORMONE Returned 06/14/2017 12:00 AM VITAMIN B-12 Returned 06/29/2017 12:00 AM NRV CNDJ TEST 13/> STUDIES Reviewed 06/29/2017 12:00 AM MUSC TEST DONE W/N TEST COMP Reviewed 10/27/2017 12:00 AM COMPLETE CBC W/AUTO DIFF WBC Returned 10/27/2017 12:00 AM COMPREHEN METABOLIC PANEL Returned 10/27/2017 12:00 AM ASSAY THYROID STIM HORMONE Returned 10/27/2017 12:00 AM ASSAY OF GONADOTROPIN (FSH) Returned 10/27/2017 12:00 AM ASSAY OF GONADOTROPIN (LH) Returned 10/27/2017 12:00 AM ASSAY OF PROGESTERONE Returned 11/21/2012 12:00 AM ROUTINE VENIPUNCTURE Reviewed 02/28/2013 [...] 11/12/2014 12:00 AM Decadron, Per [address] [facility]# [address]-33 Reviewed 11/12/2014 12:00 AM Depo-Medrol, Per [address] [facility]#5995-4695-50 Reviewed 11/12/2014 12:00 AM Rocephin [address] [facility]#1640-3424-14 Reviewed 12/06/2014 12:00 AM THER/PROPH/DIAG INJ SC/IM Reviewed 12/06/2014 12:00 AM Rocephin [address] [facility]#2417-4855-65 Reviewed 12/06/2014 12:00 AM Depo-Medrol [address] [facility]#[address]-52 Reviewed 12/06/2014 12:00 AM Decadron, Per [address] [facility]# [address]-94 Reviewed Results Summary Date and Description Results [...] CVX Influenza 07/23/2014 sanofi pasteur PMC Fluzone OF793ct Intramuscular Left Deltoid 07/23/2014 05/07/2014 141 History [...] 2017 9:49AM Paresthesia Aug 25 2017 9:49AM Seizure Disorder Oct 27 2017 3:31PM Chronic pain Oct 27 2017 3:31PM Menopausal symptoms Oct 27 2017 3:31PM Depression Oct 27 2017 3:31PM Insomnia Oct 27 2017 3:31PM Neuropathy Oct 27 2017 3:31PM Pain of left heel Nov 23 2017 10:42AM Chronic pain Nov 23 2017 10:42AM Chronic pain Dec 16 2017 10:24AM Payers Insurance Name Company Name Plan Name Plan Number Policy Number Policy Group Number Start Date BCBS Bcbs [facility] [id number] N/A Medicare [facility] Medicare [facility] [id number] N/[facility] [id number] N/A Medicare Part B Medicare Of [place] [id number] Tuesday, 2011 Medicare Part A Medicare Part A [id number] September [facility] [id number] Thursday, August 29, 2013 Medicare Part A Medicare - Lab/Xray [id number] September2013 History of Encounters Visit Date Visit Type Provider 12/16/2017 Office visit Ric Maya MD 11/23/2017 Office visit Ric Maya MD 10/27/2017 Office visit Ric Maya MD 08/25/2017 Office visit Jose Reeder DO 07/14/2017 Office visit Ric Maya MD 06/29/2017 Procedures Jose Reeder DO 06/14/2017 Office visit Ric Maya MD 05/10/2017 Office visit Ric Maya MD 04/05/2017 Office visit Ric Maya MD 03/09/2017 Office visit Ric Maya MD 11/23/2016 Office visit Ric Maya MD 09/10/2016 Office visit Ric Maya MD 06/21/2016 Office visit Ric Maya MD 06/15/2016 [facility] Chiquis Carcamo MD 03/18/2016 Office visit Ric Maya MD 11/18/2015 Office visit Ric Maya MD 08/25/2015 Office visit Ric Maya MD 06/11/2015 Office visit Ric Maya MD 05/23/2015 Office visit Ric Maya MD 04/18/2015 Office visit Marcus Lopes APRN 12/23/2014 Office visit Ric Maya MD 12/06/2014 Office visit Marcus Marianne HOFFMAN 11/12/2014 Office visit 11/12/2014 Office visit KWADWO [...]
--- OUTSIDE RECORDS SUMMARY | 2018-01-06 11:48 | XMS REPORT ---
Author Author Jose Reeder Organization [facility] Address [address] [place], [place] [address] Care Team Providers Care Litharge Supervisor Name Role Phone Jose Reeder PCP Ric Maya PreferredProvider Unavailable Allergies and Adverse Reactions Name Reaction Notes Brethine Depakote Tegretol trazodone Trileptal Plan of Treatment Planned Activity Comments Planned Date Planned Time Plan/Goal Urine Drug Screen 06/11/2015 12:00 AM DEXA 05/10/2017 12:00 AM EMG 06/14/2017 12:00 AM Nerve conduction studies; 13 or more studies 06/29/2017 12:00 AM Needle Electromyography, each extremity, complete 06/29/2017 12:00 AM CBC with Auto 11/21/2012 12:00 [...] by oral route once daily at bedtime Lyrica 75 mg oral capsule 03/09/2017 07/07/2017 take 1 capsule (75 mg) by oral route 2 times per day for 30 days Butrans 20 mcg/hour transdermal patch weekly 06/27/2017 apply 1 patch (20 mcg/hour) by transdermal route once weekly Name Start Date Expiration Date SIG Comments [...] 3 times a day for 5 days hydrocodone-acetaminophen 10-325 mg oral tablet 05/10/2017 06/09/2017 take 1- 2 tablets by oral route 4 times a day for 30 days promethazine 25 mg oral tablet 05/16/2017 [...] bid HYDROCO/APAP 7.5-500TAB 7.5 each 10/08/2010 01/26/2011 [id number] - TAKE ONE TABLET BY MOUTH 4 TIMES DAILY NEEDED FOR 30 DAYS mebendazole 100 mg oral tablet,chewable 05/05/2011 05/27/2011 chew 1 tablet ( 100 mg) by oral route as a single dose Zoloft 50 mg oral tablet 05/23/2012 02/28/2013 take 1 tablet (50 mg) by oral route daily Cymbalta 60 mg oral capsule,delayed release(/EC) 08/31/2012 02/28/2013 fabiano 90 mg daily hydrochlorothiazide 25 mg oral tablet 08/31/2012 02/28/2013 take 1 tablet ( 25 mg) by oral route once daily Valium 5 mg oral tablet 11/17/2012 11/30/2012 take 1 tablet by oral route 3 times a day mental health provider PRADEEP 10MG TAB 11/17/2012 11/30/2012 1HS - TAKE [...] Bipolar disorder, unspecified Active Headache Active Seizure Disorder Active Hypertension, Benign Essential Active 10/24/2012 Vital Signs Date Time BP-Sys(mm[Hg] BP-Elena(mm[Hg]) HR(bpm) RR(rpm) Temp WT HT HC BMI BSA BMI Percentile O2 Sat(%) 06/29/2017 1:13:00 PM 138 mmHg 84 mmHg [...] rpm 97.9 F 173 lbs 61 in 32.69 kg/m2 1.8378 m 10/13/2009 2:31:00 PM 124 mmHg [...] 06/15/2012 12:00 AM Decadron, Per [address] [facility]# [address]-08 Reviewed 06/15/2012 12:00 AM Depo-Medrol, Per [address] [facility]#8767-0650-57 Reviewed 06/15/2012 12:00 AM Rocephin [address] [facility]#7884-9817-65 Reviewed 06/14/2017 12:00 AM COMPLETE CBC W/AUTO DIFF WBC Returned 06/14/2017 12:00 AM COMPREHEN METABOLIC PANEL Returned 06/14/2017 12:00 AM ASSAY THYROID STIM HORMONE Returned 06/14/2017 12:00 AM VITAMIN B-12 Returned 11/21/2012 12:00 AM ROUTINE VENIPUNCTURE Reviewed [...] 11/12/2014 12:00 AM Decadron, Per [address] [facility]# [address]-95 Reviewed 11/12/2014 12:00 AM Depo-Medrol, Per [address] [facility]#0203-2050-01 Reviewed 11/12/2014 12:00 AM Rocephin [address] [facility]#4092-2268-27 Reviewed 12/06/2014 12:00 AM THER/PROPH/DIAG INJ SC/IM Reviewed 12/06/2014 12:00 AM Rocephin [address] [facility]#4507-6412-92 Reviewed 12/06/2014 12:00 AM Depo-Medrol [address] [facility]#[address]-54 Reviewed 12/06/2014 12:00 AM Decadron, Per [address] 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 Oct 13 2009 2:33PM Seizure Disorder Oct 16 2009 1:32PM Bipolar disorder, unspecified Oct 16 2009 1:32PM Bipolar disorder, unspecified Post traumatic stress disorder Seizure Disorder Asthma Headache Seizure Disorder Oct 30 2009 [...] 2017 10:22AM Fatigue Jun 14 2017 10:22AM Payers Insurance Name Company Name Plan Name Plan Number Policy Number Policy Group Number Start Date Medicare Part B Medicare [facility] [id number] Tuesday, 2011 Medicare Part A Medicare Part A [id number] September [facility] [employer] [facility] [id number] Thursday, 2013 Medicare Part A Medicare - Lab/Xray [id number] September2013 Medicare RHC Medicare RHC [id number] N/A [facility] [id number] N/A History of Encounters Visit Date Visit Type Provider 06/29/2017 Procedures Jose Reeder DO 06/14/2017 Office [...]
--- OUTSIDE RECORDS SUMMARY | 2018-01-06 11:50 | XMS REPORT ---
Author Author Ric Maya [facility] Address [address] [facility] [address] [place], [place] [id number] Care Team Providers Care Crm Dynamics Developer Name Role Phone Ric Maya PCP Unavailable Ric Maya PreferredProvider Unavailable Allergies and Adverse [...] (20 mcg/hour) by transdermal route once weekly hydrocodone-acetaminophen 10-325 mg oral tablet 07/14/2017 08/13/2017 take 1 -2 tablets by oral route 4 times a day for 30 days Lyrica 150 mg oral capsule 07/14/2017 11/11/2017 [...] bid HYDROCO/APAP 7.5-500TAB 7.5 each 10/08/2010 01/26/2011 [id number] - TAKE ONE TABLET BY MOUTH 4 [...] HC BMI BSA BMI Percentile O2 Sat(%) 07/14/2017 1:47:00 PM 124 mmHg 80 mmHg [...] 06/15/2012 12:00 AM Decadron, Per 1 Mg [facility]# [address]-12 Reviewed 06/15/2012 12:00 AM Depo-Medrol, Per 80 Mg [facility]#9880-1472-08 Reviewed 06/15/2012 12:00 AM Rocephin 1 gram [facility]#4877-7633-16 Reviewed 06/14/2017 12:00 AM COMPLETE CBC W/AUTO [...] 11/12/2014 12:00 AM Decadron, Per 1 Mg [facility]# [address]-10 Reviewed 11/12/2014 12:00 AM Depo-Medrol, Per 80 Mg [facility]#1983-7736-19 Reviewed 11/12/2014 12:00 AM Rocephin 1 gram [place]#4647-1432-80 Reviewed 12/06/2014 12:00 AM THER/PROPH/DIAG INJ SC/IM Reviewed 12/06/2014 12:00 AM Rocephin 1 gram [facility]#0487-6511-63 Reviewed 12/06/2014 12:00 AM Depo-Medrol 80 mg [facility]#[address]-60 Reviewed 12/06/2014 12:00 AM Decadron, Per 1 Mg [facility]# [address]-09 Reviewed Results Summary Date and Description Results [...] CVX Influenza 07/23/2014 sanofi pasteur PMC Fluzone [id number] Intramuscular Left Deltoid 07/23/2014 05/07/2014 141 History [...] 1:49PM Chronic pain Jul 14 2017 1:49PM Payers Insurance Name Company Name Plan Name Plan Number Policy Number Policy Group Number Start Date Medicare RHC Medicare RHC [id number] N/A [facility] [id number] N/A Medicare Part B Medicare Of [place] [id number] Tuesday, 2011 Medicare Part A Medicare Part A [id number] September [employer] [facility] [employer] [facility] [id number] Thursday, 2013 Medicare Part A Medicare - Lab/Xray [id number] September2013 History of Encounters Visit Date Visit Type Provider 07/14/2017 Office visit Ric Maya MD 06/29/2017 Procedures Jose Reeder DO 06/14/2017 Office visit Ric Maya MD 05/10/2017 Office visit Ric Maya MD 04/05/2017 Office visit Ric Maya MD 03/09/2017 Office visit Ric Maya MD 11/23/2016 Office visit Ric Maya MD 09/10/2016 Office visit Ric Maya MD 06/21/2016 Office visit Ric Maya MD 06/15/2016 Shante Carcamo MD 03/18/2016 Office visit Ric Maya [...]
--- OUTSIDE RECORDS SUMMARY | 2018-01-06 11:51 | XMS REPORT ---
Author Author Ric Maya [facility] Address [address] [facility] [address] [place], [place] [address] Care Team Providers Care Clinical Physician Assistant Name Role Phone Ric Maya PCP Ric Maya PreferredProvider Allergies and Adverse Reactions Name Reaction Notes Brethine Depakote Tegretol trazodone Trileptal Plan of Treatment Planned Activity Comments Planned Date Planned Time Plan/Goal Urine Drug Screen 06/11/2015 12:00 AM DEXA 05/10/2017 12:00 AM EMG 06/14/2017 12:00 AM CBC With Auto Differential 10/27/2017 12:00 AM CMP 10/27/2017 12:00 AM Thyroid stimulating hormone (TSH) 10/27/2017 12:00 AM FSH + LH ser 10/27/2017 12:00 AM FSH + LH ser 10/27/2017 12:00 AM Progesterone measurement 10/27/2017 12:00 AM CBC with Auto 11/21/2012 12:00 [...] by oral route once daily at bedtime Hysingla ER 60 mg oral tablet,oral only,ext.rel.24 hr 10/27/2017 11/26/2017 take 1 tablet (60 mg) by oral route every 24 hours for 30 days diazepam 5 mg oral tablet 10/27/2017 take 1 tablet (5 mg) by oral route 3 times per day as needed hydrocodone-acetaminophen 10-325 mg oral tablet 10/27/2017 11/26/2017 take 1 tablet by oral route every 6 hours as needed for pain for 30 days Ventolin HFA 90 mcg/actuation inhalation HFA aerosol inhaler 10/27/2017 inhale 2 puffs (180 mcg) by inhalation route every 6 hours as needed promethazine 25 mg oral tablet 10/27/2017 take 1 tablet (25 mg) by oral route every 4 hours as needed Name Start Date Expiration Date SIG Comments [...] bid HYDROCO/APAP 7.5-500TAB 7.5 each 10/08/2010 01/26/2011 [id number] - TAKE ONE TABLET BY MOUTH 4 [...] HC BMI BSA BMI Percentile O2 Sat(%) 10/27/2017 3:29:00 PM 126 mmHg 74 mmHg [...] 06/15/2012 12:00 AM Decadron, Per 1 Mg [facility]# [address]-82 Reviewed 06/15/2012 12:00 AM Depo-Medrol, Per 80 Mg [facility]#9094-0905-80 Reviewed 06/15/2012 12:00 AM Rocephin 1 gram [facility]#2432-6202-67 Reviewed 06/14/2017 12:00 AM COMPLETE CBC W/AUTO [...] 11/12/2014 12:00 AM Decadron, Per 1 Mg [facility]# [address]-73 Reviewed 11/12/2014 12:00 AM Depo-Medrol, Per 80 Mg [facility]#2195-8177-89 Reviewed 11/12/2014 12:00 AM Rocephin 1 gram [facility]#3075-5890-71 Reviewed 12/06/2014 12:00 AM THER/PROPH/DIAG INJ SC/IM Reviewed 12/06/2014 12:00 AM Rocephin 1 gram [facility]#0350-2739-63 Reviewed 12/06/2014 12:00 AM Depo-Medrol 80 mg [facility]#[address]-75 Reviewed 12/06/2014 12:00 AM Decadron, Per 1 Mg [facility]# [address]-08 Reviewed Results Summary Date and Description Results [...] CVX Influenza 07/23/2014 sanofi pasteur PMC Fluzone [id number] Intramuscular Left Deltoid 07/23/2014 05/07/2014 141 History [...] 3:07PM Chronic pain Apr 18 2015 3:07PM [place], toe Apr 18 2015 3:07PM Chronic pain [...] 2017 3:31PM Neuropathy Oct 27 2017 3:31PM Payers Insurance Name Company Name Plan Name Plan Number Policy Number Policy Group Number [id number] N/A Medicare Part B Medicare Of [place] [id number] Tuesday, 2011 Medicare Part A Medicare Part A [id number] [facility] [id number] Thursday, 2013 Medicare Part A Medicare - Lab/Xray [id number] September2013 Medicare RHC Medicare RHC [id number] N/A [facility] [id number] N/A History of Encounters Visit Date Visit Type Provider 10/27/2017 Office visit Ric Maya MD 08/25/2017 [...] 06/21/2016 Office visit Ric Maya MD 06/15/2016 [facility] Chiquis Carcamo MD 03/18/2016 Office visit Ric Maya MD 11/18/2015 Office visit Ric Maya MD 08/25/2015 Office visit Ric Maya MD 06/11/2015 Office visit Ric Maya MD 05/23/2015 Office visit Ric Maya MD 04/18/2015 Office visit Marcus Loeps APRN 12/23/2014 Office visit Ric Maya MD [...]
--- OUTSIDE RECORDS SUMMARY | 2018-01-06 11:52 | XMS REPORT ---
Author Author Ric Maya [facility] Address [address] [place], [place] [id number] Care Team Providers Care Carver And Checkerer Specials Name Role Phone Ric Maya PCP Ric [...] bid HYDROCO/APAP 7.5-500TAB 7.5 each 10/08/2010 01/26/2011 [id number] - TAKE ONE TABLET BY MOUTH 4 [...] 06/15/2012 12:00 AM Decadron, Per 1 Mg [facility]# [address]-42 Reviewed 06/15/2012 12:00 AM Depo-Medrol, Per 80 Mg [facility]#2697-4747-84 Reviewed 06/15/2012 12:00 AM Rocephin 1 gram [facility]#5702-3816-79 Reviewed 06/14/2017 12:00 AM COMPLETE CBC W/AUTO [...] 11/12/2014 12:00 AM Decadron, Per 1 Mg [facility]# [address]-92 Reviewed 11/12/2014 12:00 AM Depo-Medrol, Per 80 Mg [facility]#4262-7295-49 Reviewed 11/12/2014 12:00 AM Rocephin 1 gram [facility]#8490-9056-15 Reviewed 12/06/2014 12:00 AM THER/PROPH/DIAG INJ SC/IM Reviewed 12/06/2014 12:00 AM Rocephin 1 gram [facility]#3053-8820-99 Reviewed 12/06/2014 12:00 AM Depo-Medrol 80 mg [place]#[address]-42 Reviewed 12/06/2014 12:00 AM Decadron, Per 1 Mg [facility]# [address]-51 Reviewed Results Summary Date and Description Results [...] Vis Given Vis Pub CVX Influenza 07/23/2014 addie lorenzo PMC Fluzone [id number] Intramuscular Left Deltoid 07/23/2014 05/07/2014 141 History [...] Paresthesia of skin Jun 29 2017 1:16PM Payers Insurance Name Company Name Plan Name Plan Number Policy Number Policy Group Number Start Date Medicare RHC Medicare RHC [id number] N/A [facility] [id number] N/A Medicare Part B Medicare Of [place] [id number] Tuesday, 2011 Medicare Part A Medicare Part A [id number] September [facility] [id number] Thursday, 2013 Medicare Part A Medicare - Lab/Xray [id number] September2013 History of Encounters Visit Date Visit Type Provider 07/14/2017 Office visit Ric Maya MD 06/29/2017 Procedures Jose Reeder DO 06/14/2017 Office visit Ric Maya MD 05/10/2017 Office visit Ric Maya MD 04/05/2017 Office visit Ric Maya MD 03/09/2017 Office visit Ric Maya MD 11/23/2016 Office visit Ric Maya MD 09/10/2016 Office visit Ric Maya MD 06/21/2016 Office visit Ric Maya MD 06/15/2016 [facility] Chiquis Carcamo MD 03/18/2016 Office [...]
--- OUTSIDE RECORDS SUMMARY | 2018-01-06 11:54 | XMS REPORT ---
Author Author Ric Maya [facility] Address [address] [place], [place] [address] Care Team Providers Care Castings Trimmer Name Role Phone Ric Maya PCP Unavailable Ric Maya PreferredProvider Unavailable Allergies and Adverse Reactions Name Reaction Notes Brethine Depakote Tegretol trazodone Trileptal Plan of Treatment Planned Activity Comments Planned Date Planned Time Plan/Goal Urine Drug Screen 06/11/2015 12:00 AM DEXA 05/10/2017 12:00 AM CBC with Auto 11/21/2012 12:00 [...] TAKE TWO TABLETS BY MOUTH AT BEDTIME promethazine 25 mg oral tablet 08/25/2015 take 1 tablet (25 mg) by oral route every 6 hours as needed diazepam 5 mg oral tablet 06/22/2016 take 1 tablet (5 mg) by oral route 3 times per day as needed Ventolin HFA 90 mcg/actuation inhalation HFA aerosol inhaler 08/24/2016 inhale 2 puffs (180 mcg) by inhalation route every 6 hours as needed Cymbalta 30 mg oral capsule,delayed release(/EC) 09/10/2016 09/05/2017 take 1 capsule by oral [...] days Butrans 20 mcg/hour transdermal patch weekly 05/10/2017 apply 1 patch (20 mcg/hour) by transdermal route once weekly hydrocodone-acetaminophen 10-325 mg oral tablet 05/10/2017 06/09/2017 take 1- 2 tablets by oral route 4 times a day for 30 days Name Start Date [...] 3 times a day for 5 days Discontinued Name Start Date Discontinued Date [...] bid HYDROCO/APAP 7.5-500TAB 7.5 each 10/08/2010 01/26/2011 [id number] - TAKE ONE TABLET BY MOUTH 4 [...] HC BMI BSA BMI Percentile O2 Sat(%) 05/10/2017 10:45:00 AM 124 mmHg 72 mmHg [...] rpm 97.6 F 155 lbs 61 in 29.29 kg/m2 1.7395 m 05/31/2013 9:00:00 AM 120 mmHg 78 mmHg 81 bpm 16 rpm 98.2 F 176 lbs 61 in 33.2546 kg/m 1.85 m2 98 % 02/28/2013 8:35:00 AM 140 mmHg 96 mmHg 72 bpm 18 rpm 97.4 F 188 lbs 61 in 35.52 kg/m2 1.9158 m 10/24/2012 10:41:00 AM 156 mmHg 102 mmHg 100 bpm 20 rpm 97.9 F 181 lbs 61 in 34.1993 kg/m 1.88 m2 08/31/2012 1:58:00 PM 130 mmHg 90 mmHg 88 bpm 18 rpm 96.3 F 189 lbs 61 in 35.71 kg/m2 1.9209 m 06/15/2012 2:55:00 PM 132 mmHg 74 mmHg 77 bpm 20 rpm 98.5 F 186 lbs 61 in 35.144 kg/m 1.91 m2 97 % 01/31/2012 2:30:00 PM 128 mmHg 84 mmHg 68 bpm 20 rpm 97.8 F 196 lbs 61 in 37.03 kg/m2 1.9561 m 05/27/2011 3:23:00 PM 130 mmHg 82 mmHg 64 bpm 18 rpm 97.1 F 195 lbs 61 in 36.8445 kg/m 1.95 m2 08/11/2010 10:59:00 AM 108 mmHg [...] 06/15/2012 12:00 AM Decadron, Per 1 Mg [facility] [address]-37 Reviewed 06/15/2012 12:00 AM Depo-Medrol, Per 80 Mg [facility]#3653-3594-15 Reviewed 06/15/2012 12:00 AM Rocephin 1 gram [facility]#3638-5364-54 Reviewed 11/21/2012 12:00 AM ROUTINE VENIPUNCTURE Reviewed [...] 11/12/2014 12:00 AM Decadron, Per 1 Mg [facility]# [address]-07 Reviewed 11/12/2014 12:00 AM Depo-Medrol, Per 80 Mg [facility]#3274-5950-31 Reviewed 11/12/2014 12:00 AM Rocephin 1 gram [facility]#2446-5787-38 Reviewed 12/06/2014 12:00 AM THER/PROPH/DIAG INJ SC/IM Reviewed 12/06/2014 12:00 AM Rocephin 1 gram [facility]#2557-4158-33 Reviewed 12/06/2014 12:00 AM Depo-Medrol 80 mg [facility]#[address]-90 Reviewed 12/06/2014 12:00 AM Decadron, Per 1 Mg [facility]# [address]-54 Reviewed Results Summary Date and Description Results 10/30/2009 9:22 AM GLUCOSE 91 SODIUM 137.0 mmol/LPOTASSIUM 3.60 mmol/LCHLORIDE 101.0 mmol/LCO2 26.0 mmol/LBUN 6.0 mg/dLCREATININE 0.60 mg/dLCALCIUM 8.80 mg/ dLAGE 34 GFR NonAA 116 GFR AA 141 eGFR >60 mL/min/1.73 meGFR AA* >60 05/21/2010 4:20 PM PHENYTOIN 5.50 ug/mL 02/28/2013 9:46 AM WBC 10.6 RBC 4.70 HGB 14.10 g/dLHCT 41.30 %MCV 88.0 fLMCH 30.0 pgMCHC 34.10 g/dLRDW SD 38 RDW CV 11.90 %MPV 9.60 fLPLT 317 NRBC# 0.00 NRBC % 0.0 %NEUT 64.70 %%LYMP 29.0 %%MONO 4.10 %%EOS 2.0 %%BASO 0.20 %#NEUT 6.87 # LYMP 3.07 #MONO 0.43 #EOS 0.21 #BASO 0.02 MANUAL DIFF NOT IND TSH 1.360 uIU/ mLGLUCOSE 99.0 mg/dLSODIUM 137.0 mmol/LPOTASSIUM 3.60 mmol/LCHLORIDE 94.0 mmol/ LCO2 25.0 mmol/LBUN 12.0 mg/dLCREATININE 0.60 mg/dLSGOT/AST 17.0 IU/LSGPT/ALT 17.0 IU/LALK PHOS 66.0 IU/LTOTAL PROTEIN 8.30 g/dLALBUMIN 4.20 g/dLTOTAL BILI 0.20 mg/dLCALCIUM 10.20 mg/dLAGE 37 GFR NonAA 114 GFR AA 138 eGFR 60 eGFR AA* 60 TRIGLYCERIDES 973.0 mg/dLCHOLESTEROL 307.0 mg/dLHDL 50.0 mg/dLTOT CHOL/HDL 6.1 LDL (CALC) INVALID MG/DL TRIG 05/31/2013 10:30 AM WBC 5.4 RBC 4.49 HGB 13.60 g/dLHCT 38.80 %MCV 86.0 fLMCH 30.30 pgHC 35.10 g/dLRDW SD 39 RDW CV 12.30 [...] 4.25 HGB 13.0 g/dLHCT 38.40 %MCV 90.0 fLH 30.60 pgMCHC 33.90 g/dLRDW SD 45 RDW [...] 0.10 #BASO 0.02 MANUAL DIFF NOT IND COLOR YELLOW APPEARANCE HAZY SPEC GRAV >=1.030 pH 5.5 PROTEIN NEGATIVE GLUCOSE NEGATIVE mg/dLKETONE NEGATIVE BILIRUBIN NEGATIVE BLOOD NEGATIVE NITRITE NEGATIVE LEUK SCREEN NEGATIVE WBC/HPF RARE RBC/HPF NEGATIVE CASTS/LPF NEGATIVE / LPFCRYSTALS NEGATIVE MUCOUS THRDS NEGATIVE BACTERIA FEW EPITH CELLS FEW SQUAMOUS /HPFTRICHOMONAS NEGATIVE YEAST NEGATIVE CULT ORDERED YES GLUCOSE 100.0 mg/dLSODIUM 138.0 mmol/LPOTASSIUM 3.90 mmol/LCHLORIDE 102.0 mmol/LCO2 28.0 mmol/ LBUN 12.0 mg/dLCREATININE 0.70 mg/dLSGOT/AST 13.0 IU/LSGPT/ALT 13.0 IU/LALK PHOS 59.0 IU/LTOTAL PROTEIN 7.50 g/dLALBUMIN 4.30 g/dLTOTAL BILI 0.40 mg/ dLCALCIUM 9.0 mg/dLAGE 39 GFR NonAA 94 GFR AA 114 eGFR >60 mL/min/1.73meGFR AA * >60 Prolactin 35.60 ng/mL History Of Immunizations Name Date Admin Mfg Name Mfg Code Trade Name Lot# Route Inj Vis Given Vis Pub CVX Influenza 07/23/2014 [facility] PMC Fluzone [id number] Intramuscular Left Deltoid 07/23/2014 05/07/2014 141 History [...] Low Back Pain May 10 2017 10:47AM Payers Insurance Name Company Name Plan Name Plan Number Policy Number Policy Group Number Start Date Medicare RHC Medicare RHC [id number] N/A [facility] [id number] N/A Medicare Part B Medicare Of [place] [id number] Tuesday, 2011 Medicare Part A Medicare Part A [id number] September [facility] [employer] Claims Center [id number] Thursday, 2013 Medicare Part A Medicare - Lab/Xray [id number] September2013 History of Encounters Visit Date Visit Type Provider 05/10/2017 Office visit Ric Maya MD 04/05/2017 Office visit Ric Maya MD 03/09/2017 Office visit Ric Maya MD 11/23/2016 Office visit Ric Maya MD 09/10/2016 Office visit Ric Maya MD 06/21/2016 Office visit Ric Maya MD 06/15/2016 [facility] Chiquis Carcamo MD 03/18/2016 Office visit Ric [...]
--- OUTSIDE RECORDS SUMMARY | 2018-01-06 11:55 | XMS REPORT ---
Author Author Ric Maya [facility] Address [address] [place], [place] [address] Care Team Providers Care Intranet Developer Name Role Phone Ric Maya PCP Unavailable Ric Maya PreferredProvider Unavailable Allergies and Adverse Reactions Name Reaction Notes Brethine Depakote Tegretol trazodone Trileptal Plan of Treatment Planned Activity Comments Planned Date Planned Time Plan/Goal Urine Drug Screen 06/11/2015 12:00 AM Knee 1 or 2 Views - Main 04/05/2017 12:00 AM CBC with Auto 11/21/2012 12:00 [...] bedtime Butrans 20 mcg/hour transdermal patch weekly 03/09/2017 apply 1 patch (20 mcg/hour) by transdermal route once weekly hydrocodone-acetaminophen 10-325 mg oral tablet 03/09/2017 04/08/2017 take 1- 2 tablets by oral route 4 times a day for 30 days Lyrica 75 mg oral capsule 03/09/2017 07/07/2017 [...] bid HYDROCO/APAP 7.5-500TAB 7.5 each 10/08/2010 01/26/2011 [id number] - TAKE ONE TABLET BY MOUTH 4 [...] HC BMI BSA BMI Percentile O2 Sat(%) 04/05/2017 1:45:00 PM 118 mmHg 82 mmHg [...] rpm 95.3 F 143.125 lbs 61 in 27.043 kg/m 1.67 m2 97 % 07/23/2014 2:10:00 PM 142 mmHg 90 mmHg 78 bpm 16 rpm 98.2 F 143 lbs 61 in 27.02 kg/m2 1.6708 m 03/18/2014 2:41:00 PM 128 mmHg 78 mmHg 74 bpm 18 rpm 98.3 F 137 lbs 61 in 25.8857 kg/m 1.64 m2 10/19/2013 10:57:00 AM 122 mmHg 80 mmHg 78 bpm 18 rpm 97.1 F 153 lbs 09/27/2013 9:42:00 AM 122 mmHg 80 mmHg 72 bpm 18 rpm 98 F 151 lbs 61 in 28.5309 kg/m 1.72 m2 08/29/2013 11:09:00 AM 100 mmHg [...] 10/30/2009 12:00 AM QUANTITATIVE ASSAY DRUG Reviewed 06/15/2012 12:00 AM THER/PROPH/DIAG INJ SC/IM Reviewed 06/15/2012 12:00 AM Decadron, Per 1 Mg [facility]# [address]-48 Reviewed 06/15/2012 12:00 AM Depo-Medrol, Per 80 Mg [facility]#5213-8659-46 Reviewed 06/15/2012 12:00 AM Rocephin 1 gram [facility]#3629-3170-44 Reviewed 11/21/2012 12:00 AM ROUTINE VENIPUNCTURE Reviewed [...] 11/12/2014 12:00 AM Decadron, Per 1 Mg [facility]# [address]-51 Reviewed 11/12/2014 12:00 AM Depo-Medrol, Per 80 Mg [facility]#0496-5688-81 Reviewed 11/12/2014 12:00 AM Rocephin 1 gram [facility]#4823-8995-39 Reviewed 12/06/2014 12:00 AM THER/PROPH/DIAG INJ SC/IM Reviewed 12/06/2014 12:00 AM Rocephin 1 gram [facility]#9186-3001-14 Reviewed 12/06/2014 12:00 AM Depo-Medrol 80 mg [facility]#[address]-18 Reviewed 12/06/2014 12:00 AM Decadron, Per 1 Mg [facility]# [address]-52 Reviewed Results Summary Date and Description Results [...] CVX Influenza 07/23/2014 sanofi pasteur PMC Fluzone [id number] Intramuscular Left Deltoid 07/23/2014 05/07/2014 141 History [...] Knee pain, left Apr 05 2017 1:47PM Payers Insurance Name Company Name Plan Name Plan Number Policy Number Policy Group Number Start Date Medicare RHC Medicare RHC [id number] N/A [facility] Mikie Nicholsy-Fhp [id number] N/A Medicare Part B Medicare Of [place] [id number] Tuesday, 2011 Medicare Part A Medicare Part A [id number] September [facility] [employer] Claims Center [id number] Thursday, 2013 Medicare Part A Medicare - Lab/Xray [id number] September2013 History of Encounters Visit Date Visit Type Provider 04/05/2017 Office visit Ric Maya MD 03/09/2017 Office visit Ric Maya MD 11/23/2016 Office visit Ric Maya MD 09/10/2016 Office visit Ric Maya MD 06/21/2016 Office visit Ric Maya MD 06/15/2016 [facility] Gokul Carcamo MD 03/18/2016 Office visit Ric Maya [...]
[2018-01-06] MEDS ORDERED: BUPIVACAINE 0.5% 30 ML (SENSORCAINE) VIAL ONE (11:59)
[2018-01-06] MEDS ORDERED: ceFAZolin INJECTION 1,000 MG in NS (IVPB) 100 ML IV ONE (12:00)
[2018-01-06] MEDS ORDERED: LIDOCAINE 1% INJ 20 ML 20 ML VIAL ONE (12:00)
--- OUTSIDE RECORDS SUMMARY | 2018-01-06 12:03 | XMS REPORT ---
Author Author Ric Maya [facility] Address [address] [place], [place] [address] Care Team Providers Care Boom Man Name Role Phone Rci Maya PCP Ric Maya PreferredProvider Allergies and [...] as needed hydrocodone-acetaminophen 10-325 mg oral tablet 11/23/2017 12/23/2017 take 1 tablet by oral route every 6 hours as needed for pain for 30 days Hysingla ER 80 mg oral tablet,oral only,ext.rel.24 hr 11/23/2017 12/23/2017 take 1 tablet (80 mg) by oral route every 24 hours [...] bid HYDROCO/APAP 7.5-500TAB 7.5 each 10/08/2010 01/26/2011 [id number] - TAKE ONE TABLET BY MOUTH 4 [...] HC BMI BSA BMI Percentile O2 Sat(%) 11/23/2017 10:40:00 AM 116 mmHg 70 mmHg 59 bpm 18 rpm 96.7 F 168.5 lbs 61 in 31.84 kg/m2 1.81 m2 98 % 10/27/2017 3:29:00 PM 126 mmHg 74 mmHg 56 bpm 16 rpm 96.1 F 171.125 lbs 61 in 32.3335 kg/m 1.8278 m 99 % 08/25/2017 9:45:00 AM 122 mmHg [...] Per 1 Mg [facility]# [address]-07 Reviewed 06/15/2012 12:00 AM Depo-Medrol, Per 80 Mg [facility]#8951-8221-04 Reviewed 06/15/2012 12:00 AM Rocephin 1 gram [facility]#7268-8139-79 Reviewed 06/14/2017 12:00 AM COMPLETE CBC W/AUTO [...] Per 1 Mg [facility]# [address]-14 Reviewed 11/12/2014 12:00 AM Depo-Medrol, Per 80 Mg [facility]#8275-4130-91 Reviewed 11/12/2014 12:00 AM Rocephin 1 gram [facility]#5671-2080-60 Reviewed 12/06/2014 12:00 AM THER/PROPH/DIAG INJ SC/IM Reviewed 12/06/2014 12:00 AM Rocephin 1 gram [facility]#9869-9516-67 Reviewed 12/06/2014 12:00 AM Depo-Medrol 80 mg [facility]#[address]-24 Reviewed 12/06/2014 12:00 AM Decadron, Per 1 Mg [facility]# [address]-48 Reviewed Results Summary Date and Description Results [...] CVX Influenza 07/23/2014 sanofi pasteur PMC Fluzone [id number] Intramuscular Left Deltoid 07/23/2014 05/07/2014 141 History [...] 10:42AM Chronic pain Nov 23 2017 10:42AM Payers Insurance Name Company Name Plan Name Plan Number Policy Number Policy Group Number Start Date BCBS Bcbs [place] [id number] N/A Medicare [facility] Medicare [facility] [id number] N/A [facility] [id number] N/A Medicare Part B Medicare Of [place] [id number] Tuesday, 2011 Medicare Part A Medicare Part A [id number] September [employer] [facility] [id number] Thursday, 2013 Medicare Part A Medicare - Lab/Xray [id number] September2013 History of Encounters Visit Date Visit Type Provider 11/23/2017 Office visit Ric Maya MD 10/27/2017 [...] 06/21/2016 Office visit Ric Maya MD 06/15/2016 [facility] Chiquis Carcamo MD 03/18/2016 Office visit [...]
--- OUTSIDE RECORDS SUMMARY | 2018-01-06 12:04 | XMS REPORT ---
Author Author Jose Reeder Organization [facility] Address [address] [facility] [address] [place], [place] [address] Care Team Providers Care Process Laboratory Specialist Name Role Phone Jose Reeder PCP Ric [...] bid HYDROCO/APAP 7.5-500TAB 7.5 each 10/08/2010 01/26/2011 [id number] - TAKE ONE TABLET BY MOUTH 4 [...] Mg [facility]# [address]-45 Reviewed 06/15/2012 12:00 AM Depo-Medrol, Per 80 Mg [facility]#9423-1468-32 Reviewed 06/15/2012 12:00 AM Rocephin 1 gram [facility]#3207-5361-34 Reviewed 06/14/2017 12:00 AM COMPLETE CBC W/AUTO [...] Mg [facility]# [address]-19 Reviewed 11/12/2014 12:00 AM Depo-Medrol, Per 80 Mg [facility]#1854-4060-41 Reviewed 11/12/2014 12:00 AM Rocephin 1 gram [facility]#0288-6167-27 Reviewed 12/06/2014 12:00 AM THER/PROPH/DIAG INJ SC/IM Reviewed 12/06/2014 12:00 AM Rocephin 1 gram [facility]#9227-6817-87 Reviewed 12/06/2014 12:00 AM Depo-Medrol 80 mg [facility]#[address]-13 Reviewed 12/06/2014 12:00 AM Decadron, Per 1 Mg [facility]# [address]-18 Reviewed Results Summary Date and Description Results [...] CVX Influenza 07/23/2014 sanofi pasteur PMC Fluzone [id number] Intramuscular Left Deltoid 07/23/2014 05/07/2014 141 History [...] Date Medicare Part B Medicare Of [place] [id number] Tuesday, 2011 Medicare Part A Medicare Part A [id number] September [facility] Claims [place] [id number] Thursday, 2013 Medicare Part A Medicare - Lab/Xray [id number] September2013 Medicare RHC Medicare RHC [id number] N/A [facility] [id number] N/A History of Encounters Visit Date Visit [...] 06/21/2016 Office visit Ric Maya MD 06/15/2016 [facility] Chiquis Carcamo MD 03/18/2016 Office visit [...]
--- OUTSIDE RECORDS SUMMARY | 2018-01-06 12:05 | XMS REPORT ---
Author Author Ric Maya [facility] Address [address] [facility] [address] [place], [place] [address] Care Team Providers Care Cold Roll Packer Sheet Iron Name Role Phone Ric Maya PCP Ric [...] as needed hydrocodone-acetaminophen 10-325 mg oral tablet 01/03/2018 02/02/2018 take 1 tablet by oral route every 6 hours as needed for pain for 30 days Hysingla ER 120 mg oral tablet,oral only,ext.rel.24 hr 01/03/2018 02/02/2018 take 1 tablet (120 mg) by oral route every 24 hours [...] oral route every 6 hours as needed ATIVAN 1MG TAB 1 each 10/30/2010 11/29/2010 [...] bid HYDROCO/APAP 7.5-500TAB 7.5 each 10/08/2010 01/26/2011 [id number] - TAKE ONE TABLET BY MOUTH 4 [...] HC BMI BSA BMI Percentile O2 Sat(%) 01/03/2018 1:43:00 PM 118 mmHg 76 mmHg 77 bpm 18 rpm 99 F 162.25 lbs 61 in 30.6566 kg/m 1.7797 m 95 % 12/16/2017 10:19:00 AM 136 mmHg 88 mmHg [...] rpm 97.6 F 138 lbs 61 in 26.07 kg/m2 1.64 m2 98 % 04/18/2015 3:06:00 PM 108 mmHg 70 mmHg 76 bpm 16 rpm 140 lbs 61 in 26.4525 kg/m 1.6532 m 97 % 12/23/2014 2:38:00 PM 128 mmHg 82 mmHg 64 bpm 16 rpm 97.4 F 145 lbs 61 in 27.40 kg/m2 1.68 m2 12/06/2014 3:04:00 PM 110 mmHg 85 mmHg 64 bpm 18 rpm 97.6 F 144 lbs 61 in 27.2083 kg/m 1.6767 m 97 % 11/12/2014 11:38:00 AM 100 mmHg 68 mmHg 65 bpm 18 rpm 146.5 lbs 60 in 28.61 kg/m2 1.68 m2 96 % 10/11/2014 11:29:00 AM 110 mmHg 80 mmHg 58 bpm 20 rpm 95.3 F 143.125 lbs 61 in 27.043 kg/m 1.6716 m 97 % 07/23/2014 2:10:00 PM 142 mmHg 90 mmHg 78 bpm 16 rpm 98.2 F 143 lbs 61 in 27.02 kg/m2 1.67 m2 03/18/2014 2:41:00 PM 128 mmHg 78 mmHg 74 bpm 18 rpm 98.3 F 137 lbs 61 in 25.8857 kg/m 1.6354 m 10/19/2013 10:57:00 AM 122 mmHg 80 mmHg 78 bpm 18 rpm 97.1 F 153 lbs 09/27/2013 9:42:00 AM 122 mmHg 80 mmHg 72 bpm 18 rpm 98 F 151 lbs 61 in 28.5309 kg/m 1.7169 m 08/29/2013 11:09:00 AM 100 mmHg 62 mmHg 84 bpm 18 rpm 97.6 F 155 lbs 61 in 29.29 kg/m2 1.74 m2 05/31/2013 9:00:00 AM 120 mmHg 78 mmHg 81 bpm 16 rpm 98.2 F 176 lbs 61 in 33.2546 kg/m 1.8536 m 98 % 02/28/2013 8:35:00 AM 140 mmHg 96 mmHg 72 bpm 18 rpm 97.4 F 188 lbs 61 in 35.52 kg/m2 1.92 m2 10/24/2012 10:41:00 AM 156 mmHg 102 mmHg 100 bpm 20 rpm 97.9 F 181 lbs 61 in 34.1993 kg/m 1.8798 m 08/31/2012 1:58:00 PM 130 mmHg 90 mmHg 88 bpm 18 rpm 96.3 F 189 lbs 61 in 35.71 kg/m2 1.92 m2 06/15/2012 2:55:00 PM 132 mmHg 74 mmHg 77 bpm 20 rpm 98.5 F 186 lbs 61 in 35.144 kg/m 1.9056 m 97 % 01/31/2012 2:30:00 PM 128 mmHg 84 mmHg 68 bpm 20 rpm 97.8 F 196 lbs 61 in 37.03 kg/m2 1.96 m2 05/27/2011 3:23:00 PM 130 mmHg 82 mmHg 64 bpm 18 rpm 97.1 F 195 lbs 61 in 36.8445 kg/m 1.9511 m 08/11/2010 10:59:00 AM 108 mmHg 78 mmHg [...] 12:00 AM Decadron, Per 1 Mg [facility]# [address]-62 Reviewed 06/15/2012 12:00 AM Depo-Medrol, Per 80 Mg [facility]#7534-1073-32 Reviewed 06/15/2012 12:00 AM Rocephin 1 gram [facility]#0028-9[address]-91 Reviewed 06/14/2017 12:00 AM COMPLETE CBC W/AUTO [...] 12:00 AM Decadron, Per 1 Mg [facility]# [address]-72 Reviewed 11/12/2014 12:00 AM Depo-Medrol, Per 80 Mg [facility]#1105-4080-12 Reviewed 11/12/2014 12:00 AM Rocephin 1 gram [facility]#7927-0361-28 Reviewed 12/06/2014 12:00 AM THER/PROPH/DIAG INJ SC/IM Reviewed 12/06/2014 12:00 AM Rocephin 1 gram [facility]#3644-0281-53 Reviewed 12/06/2014 12:00 AM Depo-Medrol 80 mg [facility]#[address]-89 Reviewed 12/06/2014 12:00 AM Decadron, Per 1 Mg [facility]# [address]-40 Reviewed Results Summary Date and Description Results [...] Pub CVX Influenza 07/23/2014 sanofi pasteur PMC FLUZONE [id number] Intramuscular Left Deltoid 07/23/2014 05/07/2014 141 History [...] 10:42AM Chronic pain Dec 16 2017 10:24AM Benign skin lesion Jan 03 2018 1:44PM Foot pain, left Jan 03 2018 1:44PM Preop examination Jan 03 2018 1:44PM Payers Insurance Name Company Name Plan Name Plan Number Policy Number Policy Group Number Start Date [id number] N/A Medicare RHC Medicare RHC [id number] N/A [facility] [id number] N/A Medicare Part B Medicare Of [place] [id number] Tuesday, 2011 Medicare Part A Medicare Part A [id number] September [facility] [employer] Claims [facility] [id number] Thursday, 2013 Medicare Part A Medicare - Lab/Xray [id number] September2013 History of Encounters Visit Date Visit Type Provider 01/03/2018 Office visit Ric Maya MD 12/16/2017 Office visit Ric Maya MD 11/23/2017 [...] visit Ric Maya MD 06/15/2016 [facility] Chiquis Carcamo MD 03/18/2016 Office [...]
--- OUTSIDE RECORDS SUMMARY | 2018-01-06 12:07 | XMS REPORT ---
Author Author Ric Maya [facility] Address [address] [place], [place] [id number] Care Team Providers Care Locum Tenens Psychiatrist Name Role Phone Ric Maya PCP Unavailable Ric Maya PreferredProvider Unavailable Allergies and Adverse Reactions Name Reaction Notes Brethine Depakote Tegretol trazodone Trileptal Plan of Treatment Planned Activity Comments Planned Date Planned Time Plan/Goal Urine Drug Screen 06/11/2015 12:00 AM DEXA 05/10/2017 12:00 AM CBC With Auto Differential 06/14/2017 12:00 AM CMP 06/14/2017 12:00 AM Thyroid stimulating hormone (TSH) 06/14/2017 12:00 AM Vitamin B12 06/14/2017 12:00 AM EMG 06/14/2017 12:00 AM CBC [...] (20 mcg/hour) by transdermal route once weekly promethazine 25 mg oral tablet 05/16/2017 06/18/2017 TAKE ONE TABLET BY MOUTH EVERY 6 HOURS NEEDED Name Start Date Expiration Date SIG Comments [...] bid HYDROCO/APAP 7.5-500TAB 7.5 each 10/08/2010 01/26/2011 [id number] - TAKE ONE TABLET BY MOUTH 4 [...] HC BMI BSA BMI Percentile O2 Sat(%) 06/14/2017 10:21:00 AM 124 mmHg 66 mmHg [...] 06/15/2012 12:00 AM Decadron, Per 1 Mg [facility]# [address]-88 Reviewed 06/15/2012 12:00 AM Depo-Medrol, Per 80 Mg [facility]#4242-9373-53 Reviewed 06/15/2012 12:00 AM Rocephin 1 gram [facility]#1211-7848-44 Reviewed 11/21/2012 12:00 AM ROUTINE VENIPUNCTURE Reviewed [...] 11/12/2014 12:00 AM Decadron, Per 1 Mg [facility]# [address]-44 Reviewed 11/12/2014 12:00 AM Depo-Medrol, Per 80 Mg [facility]#4880-3618-83 Reviewed 11/12/2014 12:00 AM Rocephin 1 gram [facility]#7322-5710-37 Reviewed 12/06/2014 12:00 AM THER/PROPH/DIAG INJ SC/IM Reviewed 12/06/2014 12:00 AM Rocephin 1 gram [facility]#0198-3197-79 Reviewed 12/06/2014 12:00 AM Depo-Medrol 80 mg [facility]#[address]-01 Reviewed 12/06/2014 12:00 AM Decadron, Per 1 Mg [facility]# [address]-84 Reviewed Results Summary Date and Description Results [...] CVX Influenza 07/23/2014 [employer] [facility] Fluzone [id number] Intramuscular Left Deltoid 07/23/2014 05/07/2014 141 History [...] Number Start Date Medicare RHC Medicare RHC [id number] N/A [facility] Nichols[facility] [id number] N/A Medicare Part B Medicare [place] [id number] Tuesday, 2011 Medicare Part A Medicare Part A [id number] September [facility] [employer] [facility] [id number] Thursday, 2013 Medicare Part A Medicare - Lab/Xray [id number] September2013 History of Encounters Visit Date Visit Type Provider 06/14/2017 Office visit Ric Maya MD 05/10/2017 Office visit Ric Maya MD 04/05/2017 Office visit Ric Maya MD 03/09/2017 Office visit Ric Maya MD 11/23/2016 Office visit Ric Maya MD 09/10/2016 Office visit Ric Maya MD 06/21/2016 Office visit Ric Maya MD 06/15/2016 [facility] Chiquis Carcamo MD 03/18/2016 Office visit [...] visit Ric Maya MD 06/15/2012 Office visit KAWDWO GARCIA 01/31/2012 Office visit Ric Maya MD 05/27/2011 Office visit Ric Maya MD 08/11/2010 Office visit Ric Maya MD 06/05/2010 Office visit Ric Maya MD 01/08/2010 Office visit Ric Maya MD 10/30/2009 Voided Ric Maya MD 10/30/2009 Office visit Ric Maya MD 10/16/2009 Office visit Ric Maya MD 10/13/2009 Office visit Kwadwo Lynn PA-C
--- OUTSIDE RECORDS SUMMARY | 2018-01-06 12:09 | XMS REPORT ---
Author Author Ric Maya [facility] Address [address] [place], [place] [address] Care Team Providers Care Tobacco Shaker Name Role Phone Ric Maya PCP Unavailable [...] bid HYDROCO/APAP 7.5-500TAB 7.5 each 10/08/2010 01/26/2011 [id number] - TAKE ONE TABLET BY MOUTH 4 [...] 06/15/2012 12:00 AM Decadron, Per 1 Mg [facility]# 78627-2013-06 Reviewed 06/15/2012 12:00 AM Depo-Medrol, Per 80 Mg [facility]#0151-7295-36 Reviewed 06/15/2012 12:00 AM Rocephin 1 gram [facility]#3125-5318-70 Reviewed 11/21/2012 12:00 AM ROUTINE VENIPUNCTURE Reviewed [...] 11/12/2014 12:00 AM Decadron, Per 1 Mg [facility]# [address]-40 Reviewed 11/12/2014 12:00 AM Depo-Medrol, Per 80 Mg [facility]#7481-0337-89 Reviewed 11/12/2014 12:00 AM Rocephin 1 gram [facility]#6728-1963-33 Reviewed 12/06/2014 12:00 AM THER/PROPH/DIAG INJ SC/IM Reviewed 12/06/2014 12:00 AM Rocephin 1 gram [facility]#7634-6654-26 Reviewed 12/06/2014 12:00 AM Depo-Medrol 80 mg [facility]#[address]-45 Reviewed 12/06/2014 12:00 AM Decadron, Per 1 Mg [facility]# [address]-70 Reviewed Results Summary Date and Description Results [...] Vis Given Vis Pub CVX Influenza 07/23/2014 [facility] Fluzone [id number] Intramuscular Left Deltoid 07/23/2014 05/07/2014 141 History [...] Number Start Date Medicare RHC Medicare RHC [id number] N/A [facility] [id number] N/A Medicare Part B Medicare [place] [id number] Tuesday, 2011 Medicare Part A Medicare Part A [id number] September [facility] [employer] Claims [facility] [id number] Thursday, August 29, 2013 Medicare Part A Medicare - Lab/Xray [id number] September2013 History of Encounters Visit Date Visit Type Provider 05/10/2017 Office visit Ric Maya MD 04/05/2017 Office visit Ric Maya MD 03/09/2017 Office visit Ric Maya MD 11/23/2016 Office visit Ric Maya MD 09/10/2016 Office visit Ric Maya MD 06/21/2016 Office visit Ric Maya MD 06/15/2016 [facility] Chiquis Carcamo MD 03/18/2016 Office [...]
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
[2018-01-06] MEDS ORDERED: MIDAZOLAM 2 MG/2 ML (VERSED) VIAL ONE ×2 (12:32→12:37)
[2018-01-06] MEDS ORDERED: MIDAZOLAM 2 MG/2 ML (VERSED) VIAL IM ONE (12:35)
[2018-01-06] MEDS ORDERED: ONDANSETRON 4 MG/2 ML (SDV) Z0FRAN ONE (12:36)
[2018-01-06] MEDS ORDERED: proPOfol 200 MG/20 ML (DIPRIVAN) VIAL IV ONE (12:36)
[2018-01-06] MEDS ORDERED: LIDOCAINE PF 2% 5 ML (XYLOCAINE) VIAL ONE (12:36)
[2018-01-06] MEDS ORDERED: fentaNYL INJECTION 100 MCG/2 ML AMP ONE (12:36)
[2018-01-06] MEDS: LACTATED RINGERS 1,000 ML IV PRN ×2 (12:40→13:48)
[2018-01-06] MEDS ORDERED: SEVOFLURANE (ULTANE) 15 ML INHAL SOLN ONE (13:47)
[2018-01-06] MEDS ORDERED: ONDANSETRON 4 MG/2 ML (SDV) Z0FRAN IVP PRN (14:00)
--- NOTE | 2018-01-06 14:06 | Progress Note-Pre Operative ---
Pre-Operative Progress Note H&P Reviewed The H&P was reviewed, patient examined and no changes noted. Date Seen by Provider: Jan 06, 2018 Time Seen by Provider: 12:30 Date H&P Reviewed: Jan 06, 2018 Time H&P Reviewed: 12:05 Pre-Operative Diagnosis: Unknown Soft Tissue Mass left foot SYLVIASANDRITA DPM Jan 06, 2018 2:06 pm
[2018-01-06] MEDS ORDERED: LACTATED RINGERS 1,000 ML IV SCH (14:08)
--- NOTE | 2018-01-06 14:08 | Progress Note-Post Operative ---
Post-Operative Progess Note Surgeon (s)/Sewage Reticulation Drafting Officer (s) Surgeon SANDRITA WARD DPM Sewage Reticulation Drafting Officer: None Pre-Operative Diagnosis Unknown Soft Tissue Mass left foot Post-Operative Diagnosis Same Procedure & Operative Findings Date of Procedure 01/06/18 Procedure Performed/Findings Incisional Biopsy of soft tissue mass (deep down to bone) left lateral calcaneus Anesthesia Type General Estimated Blood Loss Estimated blood loss (mL): Minimal Specimens/Packing Specimens Removed Soft Tissue Mass left foot SANDRITA WARD DPM Jan 06, 2018 2:08 pm
[2018-01-06] MEDS: morphine INJ 10 MG/ML 1ML (SYR OR VIAL) IVP PRN ×2 (14:22→14:27)
[2018-01-06] MEDS: MEPERIDINE (DEMEROL) INJ 50 MG/ML IVP PRN ×2 (14:35→14:50)
[2018-01-06] MEDS ORDERED: HYDROmorphone (DILAUDID) 2 MG/ML VIAL ONE (14:57)
--- NOTE | 2018-01-06 15:26 | Anesthesia-General Post-Op ---
General Patient Condition Mental Status/LOC: Same as Preop Cardiovascular: Satisfactory Nausea/Vomiting: Absent Respiratory: Satisfactory Pain: Controlled Complications: Absent Post Op Complications Complications None Follow Up Care/Instructions Patient Instructions None needed. Anesthesia/Patient Condition Patient Condition Patient is doing well, no complaints, stable vital signs, no apparent adverse anesthesia problems. No complications reported per nursing. WILNER TRAMMELL CRNA Jan 06, 2018 15:26
[2018-01-06 16:05] VITALS: BP 125/81
[2018-01-06 16:35] VITALS: BP 130/84
[2018-01-06] MEDS ORDERED: HYDROcodone/APAP 10 MG/325 MG (LORTAB) TAB PO ONE ×2 (16:37→16:45)
[2018-01-06 17:05] VITALS: BP 129/81
[2018-01-06 17:15] VITALS: BP 129/81
--- NOTE | 2018-01-06 23:45 | OPERATIVE REPORT ---
DATE OF SERVICE: 01/06/2018 SURGEON: Lexii Ward DPM PREOPERATIVE DIAGNOSIS: Unknown soft tissue mass, left heel. POSTOPERATIVE DIAGNOSIS: Unknown soft tissue mass, left heel. PROCEDURE: Incisional biopsy of the lesion, left lateral calcaneus. WOUND CLASS: Clean. ANESTHESIA: General. HEMOSTASIS: Pneumatic thigh tourniquet at 300 mmHg. INDICATIONS: This 42-year-old female presents with a painful lesion to the left lateral heel. The lesion has gotten larger over time and it is more painful and symptomatic for the patient, especially with ambulation and shoe gear. MRI was performed and it was demonstrated an indistinct mass to the lateral aspect of the left calcaneus. It was designated to be 9 x 5 x 9 mm. The bone marrow and cortices was intact, but the mass was pretty nonspecific. After this, the patient was agreeable to biopsy of the lesion knowing that she may not have any definitive diagnosis for some time. She also understands that there will be nerve in the area and she may end up with permanent numbness associated with the left lateral calcaneus in heel area. She is willing to proceed, and no guarantees were extended to the patient. DESCRIPTION OF PROCEDURE: The patient was brought back to the operative table, placed in a secure supine position. Appropriate time out was performed. Pneumatic thigh tourniquet was placed on the left lower extremity. General anesthetic was induced. The left foot was then prepped and draped in normal sterile manner. The left foot was then elevated and allowed to exsanguinate, after which the tourniquet was inflated to 300 mmHg. Attention was then directed to the lateral aspect of the left calcaneus area where a preoperative marking was identified and the area of maximal tenderness to the patient. A 5 cm curvilinear incision was created. This was just slightly inferior and posterior to what would be the midpoint between the calcaneal tuberosity and the lateral malleolus. The incision was deepened in the same plane with great care to identify and retract all vital neurovascular structures. However, the mass, it was a gelatinous type of material consistent with adipose tissue. The coloring did not seem to be quite as yellow as I would expect it to be and sample of this was sent for gross and microscopic evaluation. The dissection was carried out down to bone. No cortical disruption was identified. The area had no distinct margins to the lesion. Exploration distally and laterally provided no additional pathological information. The wound was flushed with copious amounts of normal saline and closure was then performed in layers. The subcutaneous tissue was reapproximated with 4-0 Vicryl and skin closed with 4-0 Prolene in alternating simple interrupted and horizontal mattress type stitch. Postoperative injection consisted of 10 mL of 0.5% Marcaine plain injected in a local infusion to the surgical site. Postoperative dressing consisted of Betadine soaked Adaptic, sterile 4 x 4, sterile Kerlix all secured with a Coban wrap. The patient tolerated the anesthesia and procedure well, was transported from the operating room to the recovery area with vital signs stable and vascular status intact to all digits of the left foot. Postoperative instructions were dispensed to the patient. She will ambulate with a surgical splint shoe with crutch assistance if needed. She will follow up in the office in 10 days' period of time or sooner if necessary. Job ID: [id number] DocumentID: [id number] Dictated Date: 01/06/2018 14:17:04 Special Events Director Date: 01/06/2018 23:45:16 Dictated By: LEXII WARD DPM
== END 2018-01-06 17:15 | disposition home or self-care (01) ==
LOC: SDC 11:37
PROVIDERS: ATTEND Podiatrist Foot & Ankle Surgery
DX: D17.24 Benign lipomatous neoplasm of skin and subcutaneous tissue of left leg (principal); I10 Essential (primary) hypertension; J45.909 Unspecified asthma, uncomplicated; G40.909 Epilepsy, unspecified, not intractable, without status epilepticus; F31.9 Bipolar disorder, unspecified; F43.10 Post-traumatic stress disorder, unspecified; Z79.899 Other long term (current) drug therapy

== ENCOUNTER 2018-04-12 00:20 | Observation (INO) | payer BC, MEDICARE ==
[~2018-04-12] VITALS: Ht 154.9 cm; Wt 76.2 kg
[2018-04-12] VITALS (8 sets, daily range): BP systolic 92–156; BP diastolic 79–111
--- OUTSIDE RECORDS SUMMARY | 2018-04-12 00:26 | XMS REPORT | Clinical Summary ---
Author Author [facility] Organization [facility] Address Unknown Phone Unavailable Care Team Providers Care Discharge Coordinator Name Role Phone Ric Maya MD PCP Tami Barr APRN- Unavailable Anika Barrios MD Unavailable Source Comments Some departments are not documenting in the electronic medical record. If you do not see the information that you expected, contact Release of Information in the Health Information Management department at [phone] for further assistance in locating additional records.[facility] Allergies Active Allergy Reactions Severity Noted [...] Status Date Albuterol (Refill) 90 Inhale 1 [place] by mouth Active mcg/Actuation IN Aero Every [...] tablet 6 hours as needed for Anxiety. 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
--- OUTSIDE RECORDS SUMMARY | 2018-04-12 00:28 | XMS REPORT ---
Author Author Ric Maya [facility] Address [address] [place], [place] [id number] Care Team Providers Care Irrigation Teacher Name Role Phone Ric Maya PCP Ric [...] Start Date Estimated Completion Date SIG Comments Ambien 10 mg oral tablet 04/23/2014 TAKE [...] as needed hydrocodone-acetaminophen 10-325 mg oral tablet 03/09/2018 04/08/2018 take 1 tablet by oral route every 6 hours as needed for pain for 30 days Butrans 20 mcg/hour transdermal patch weekly 03/09/2018 apply 1 patch (20 mcg/hour) by transdermal route every 7 days Name Start Date Expiration Date SIG [...] TABLET BY MOUTH EVERY 6 HOURS NEEDED Hysingla ER 120 mg oral tablet,oral only,ext.rel.24 hr 01/03/2018 02/02/2018 take 1 tablet (120 mg) by oral route every 24 hours for 30 days MS Contin 30 mg oral tablet extended release 02/14/2018 03/16/2018 take 1 tablet (30 mg) by oral route every 12 hours for 30 days Discontinued Name Start Date [...] bid HYDROCO/APAP 7.5-500TAB 7.5 each 10/08/2010 01/26/2011 [id number] - TAKE ONE TABLET BY MOUTH 4 [...] 3 times a day mental health provider AMBPRINCE 10MG TAB 11/17/2012 11/30/2012 1HS - TAKE [...] HC BMI BSA BMI Percentile O2 Sat(%) 03/09/2018 1:27:00 PM 142 mmHg 88 mmHg 82 bpm 18 rpm 98.2 F 167.375 lbs 61 in 31.6249 kg/m 1.8076 m 98 % 01/03/2018 1:43:00 PM 118 mmHg 76 mmHg 77 bpm 18 rpm 99 F 162.25 lbs 61 in 30.66 kg/m2 1.78 m2 95 % 12/16/2017 10:19:00 AM 136 mmHg 88 mmHg 76 bpm 16 rpm 97.8 F 166 lbs 61 in 31.3651 kg/m 1.8002 m 98 % 11/23/2017 10:40:00 AM 116 mmHg [...] 06/15/2012 12:00 AM Decadron, Per [address] [facility]# [address]-91 Reviewed 06/15/2012 12:00 AM Depo-Medrol, Per [address] [facility]#2090-6090-37 Reviewed 06/15/2012 12:00 AM Rocephin [address] [facility]#8465-5670-69 Reviewed 06/14/2017 12:00 AM COMPLETE CBC W/AUTO [...] 11/12/2014 12:00 AM Decadron, Per [address] [facility]# [address]-33 Reviewed 11/12/2014 12:00 AM Depo-Medrol, Per [address] [facility]#6585-9794-12 Reviewed 11/12/2014 12:00 AM Rocephin 1 gram [place]#6768-8365-33 Reviewed 12/06/2014 12:00 AM THER/PROPH/DIAG INJ SC/IM Reviewed 12/06/2014 12:00 AM Rocephin 1 gram [place]#0069-2876-33 Reviewed 12/06/2014 12:00 AM Depo-Medrol [address] [facility]#[address]-91 Reviewed 12/06/2014 12:00 AM Decadron, Per [address] [facility]# [address]-39 Reviewed Results Summary Date and Description Results [...] CVX Influenza 07/23/2014 sanofi pasteur PMC FLUZONE [id number] Intramuscular Left Deltoid 07/23/2014 05/07/2014 141 History [...] Chronic pain syndrome Aug 11 2010 11:02AM Chronic pain syndrome Depression and anxiety May 27 2011 3:23PM [...] 1:44PM Preop examination Jan 03 2018 1:44PM Chronic pain Mar 09 2018 1:29PM Payers Insurance Name Company Name Plan Name Plan Number Policy Number Policy Group Number Start Date BCBS [facility] [id number] N/A Medicare RHC Medicare RHC [id number] N/A [facility] [id number] N/A Medicare Part B Medicare Of [place] [id number] Tuesday, 2011 Medicare Part A Medicare Part A [id number] September [employer] [facility] [id number] Thursday, 2013 Medicare Part A Medicare - Lab/Xray [id number] September2013 History of Encounters Visit Date Visit Type Provider 03/09/2018 Office visit Ric Maya MD 01/03/2018 Office visit Ric Maya MD 12/16/2017 [...] 06/21/2016 Office visit Ric Maya MD 06/15/2016 [facility] Gokul Carcamo MD 03/18/2016 Office visit Ric Maya MD 11/18/2015 Office visit Ric Maya MD 08/25/2015 Office visit Ric Maya MD 06/11/2015 Office visit Ric Maya MD 05/23/2015 Office visit Ric Maya MD 04/18/2015 Office visit Marcus Lopes TIP CEMENTER 12/23/2014 Office visit Ric Maya MD 12/06/2014 [...]
[2018-04-12] MEDS ORDERED: NS IV 1000 ML 1,000 ML IV ONE (00:40)
[2018-04-12 00:48] LABS: BASOPHILS % (AUTO) 0 % (0-10); EOSINOPHILS # (AUTO) 0.2 10^3/uL (0.0-0.3); EOSINOPHILS % (AUTO) 2 % (0-10); HEMATOCRIT 37 % (35-52); LYMPHOCYTES # (AUTO) 3.5 X 10^3 (1.0-4.0); LYMPHOCYTES % (AUTO) 48 % (12-44); MEAN CORPUSCULAR HEMOGLOBIN 30 PG (25-34); MEAN CORPUSCULAR HGB CONC 35 G/DL (32-36); MEAN CORPUSCULAR VOLUME 86 FL (80-99); MEAN PLATELET VOLUME 9.5 FL (7.4-10.4); MONOCYTES # (AUTO) 0.5 X 10^3 (0.0-1.0); MONOCYTES % (AUTO) 7 % (0-12); NEUTROPHILS # (AUTO) 3.1 X 10^3 (1.8-7.8); NEUTROPHILS % (AUTO) 42 % (42-75); PLATELET COUNT 356 10^3/uL (130-400); RED BLOOD COUNT 4.37 10^6/uL (4.35-5.85); RED CELL DISTRIBUTION WIDTH 12.2 % (10.0-14.5); WHITE BLOOD COUNT 7.4 10^3/uL (4.3-11.0)
--- OUTSIDE RECORDS SUMMARY | 2018-04-12 00:53 | XMS REPORT ---
Author Author Ric Maya [facility] Address [address] [place], [place] [id number] Care Team Providers Care Beauty Specialist Name Role Phone Ric Maya PCP Ric [...] bid HYDROCO/APAP 7.5-500TAB 7.5 each 10/08/2010 01/26/2011 [id number] - TAKE ONE TABLET BY MOUTH 4 [...] 06/15/2012 12:00 AM Decadron, Per 1 Mg [facility]# [address]-09 Reviewed 06/15/2012 12:00 AM Depo-Medrol, Per 80 Mg [facility]#9387-8972-61 Reviewed 06/15/2012 12:00 AM Rocephin 1 gram [facility]#2273-9148-72 Reviewed 06/14/2017 12:00 AM COMPLETE CBC W/AUTO [...] 11/12/2014 12:00 AM Decadron, Per 1 Mg [facility]# [address]-64 Reviewed 11/12/2014 12:00 AM Depo-Medrol, Per 80 Mg [facility]#0225-6181-42 Reviewed 11/12/2014 12:00 AM Rocephin 1 gram [facility]#6716-6738-90 Reviewed 12/06/2014 12:00 AM THER/PROPH/DIAG INJ SC/IM Reviewed 12/06/2014 12:00 AM Rocephin 1 gram [facility]#7849-1353-09 Reviewed 12/06/2014 12:00 AM Depo-Medrol 80 mg [facility]#[address]-86 Reviewed 12/06/2014 12:00 AM Decadron, Per 1 Mg [facility]# [address]-32 Reviewed Results Summary Date and Description Results [...] CVX Influenza 07/23/2014 sanofi pasteur PMC FLUZONE [id number] Intramuscular Left Deltoid 07/23/2014 05/07/2014 141 History [...] Number Policy Group Number [id number] Medicare RHC Medicare RHC [id number] N/A [facility] [id number] N/A Medicare Part B Medicare [place] [id number] Tuesday, 2011 Medicare Part A Medicare Part A [id number] September [employer] [facility] [id number] Thursday, 2013 Medicare Part A Medicare - Lab/Xray [id number] September2013 History of Encounters Visit Date Visit Type Provider 01/03/2018 Office visit Ric Maya MD 12/16/2017 Office visit Ric Maya MD 11/23/2017 Office visit Ric Maya MD 10/27/2017 Office visit Ric Maya MD 08/25/2017 Office visit Jose Reeder DO 07/14/2017 Office visit Ric Maya MD 06/29/2017 Procedures Josemendez Schreibera DO 06/14/2017 Office visit Ric Maya MD 05/10/2017 Office visit Ric Maya MD 04/05/2017 Office visit Ric Maya MD 03/09/2017 Office visit Ric Maya MD 11/23/2016 Office visit Ric Maya MD 09/10/2016 Office visit Ric Maya MD 06/21/2016 Office visit Ric Maya MD 06/15/2016 Hospital Chiquis Carcamo MD 03/18/2016 Office visit [...]
[2018-04-12 01:03] LABS: ACETAMINOPHEN 25 UG/ML (10-30); ALANINE AMINOTRANSFERASE 38 U/L (0-55); ALBUMIN 4.6 GM/DL (3.2-4.5); ALKALINE PHOSPHATASE 88 U/L (40-136); BILIRUBIN,TOTAL 0.4 MG/DL (0.1-1.0); BUN/CREATININE RATIO 14; CALCIUM 10.1 MG/DL (8.5-10.1); CARBON DIOXIDE 25 MMOL/L (21-32); CHLORIDE 103 MMOL/L (98-107); CREATININE SERUM 0.77 MG/DL (0.60-1.30); GFR ESTIMATED > 60; GLUCOSE 109 MG/DL (70-105); MAGNESIUM 2.1 MG/DL (1.8-2.4); POTASSIUM 3.3 MMOL/L (3.6-5.0); SALICYLATE < 5.0 MG/DL (5.0-20.0); SODIUM 140 MMOL/L (135-145); TOTAL PROTEIN 7.9 GM/DL (6.4-8.2)
[2018-04-12 01:22] LABS: TSH (THYROID ANALYZER) 0.83 UIU/ML (0.35-4.94)
[2018-04-12 01:34] LABS: BILIRUBIN,URINE NEGATIVE (NEGATIVE); CLARITY,URINE SLIGHTLY CLOUDY; COLOR,URINE YELLOW; GLUCOSE, URINE (UA) NEGATIVE (NEGATIVE); KETONES,URINE 1+ (NEGATIVE); LEUKOCYTE ESTERASE ,URINE 1+ (NEGATIVE); NITRITE,URINE NEGATIVE (NEGATIVE); PH,URINE 5 (5-9); PROTEIN,URINE 2+ (NEGATIVE); UROBILINOGEN,URINE NORMAL (NORMAL)
--- NOTE | 2018-04-12 01:43 | ED Psychosocial ---
General Chief Complaint: Overdose Stated Complaint: OVERDOSE,SUICIDAL Nursing Triage Note: Patient presented to the ER via EMS with secondary to an overdose of medications which are prescribed to her. EMS advise that the patient has taken approximately 6 hydrocodone and 3 lyrica. Patient is a poor historian to events but her ex advised that the patient called earlier and explained that she was going to sleep and not wake up. Source: patient, family, EMS, old records Exam Limitations: no limitations History of Present Illness Date Seen by Provider: Apr 12, 2018 Time Seen by Provider: 00:18 Initial Comments This 42-year-old woman is brought to the emergency room via EMS for reasons of overdose. As best I can extract from the patient she took a hydrocodone 10 mg 6 and Lyrica 150 mg 3 this evening. The exact times of ingestion are unknown. Patient is not giving me a clear story on what exactly she took, quantities, and when. She is rather somnolent and falling asleep in mid sentence. Vital signs are stable with mild tachycardia. EMS reports that police were on scene and requested that the patient receive a behavioral health screening before released. I did interview the ex- and his significant other. They seemed appropriately concerned about patient. According to the ex- patient had contacted their daughter this evening and stated she was "going to be with God". EMS reported patient had told the daughter she "took enough medications that she would not wake up in the morning ". Patient denied suicidal ideation and stated she took the medications to "try to sleep". Ex- also stated patient has a history of suicide attempts in the past requiring hospitalization. He also reports that she has depression, bipolar disorder, and borderline personality disorder and is "a master manipulator" and "she can talk herself out of anything". Patient denies any drug or alcohol use. Patient's filling record and MARY tracks were reviewed. Patient is on numerous controlled substances. Medications of concern found in her record include Suboxone, hydrocodone, Hysingla, diazepam, Ambien, morphine, Lyrica, and phentermine. Patient denies suicidal ideation but did say she had thoughts of hurting her daughter's girlfriend whose name she could not recall. She did state she would not act on those thoughts. 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 Allergies and Home Medications Allergies Coded Allergies: tramadol (Verified Allergy, Mild, SOB/CHEST TIGHTNESS, 12/29/17) carbamazepine (Unverified Allergy, Unknown, 06/17/11) divalproex sodium (Unverified Allergy, Unknown, 06/10/15) ketorolac (Unverified Allergy, Unknown, 06/10/15) levetiracetam (Unverified Allergy, Unknown, 06/10/15) oxcarbazepine (Unverified Allergy, Unknown, 06/10/15) phenytoin (Unverified Allergy, Unknown, 06/10/15) quetiapine (Verified Allergy, Unknown, 12/29/17) terbutaline (Verified Adverse Reaction, Severe, 09/03/08) "STOPPED MY BREATHING" trazodone (Verified Adverse Reaction, Intermediate, 09/03/08) "SLOWS MY BREATHING" Home Medications Diazepam 5 Mg Tablet, 5 MG PO PRN, (Reported) Hydrocodone Bitartrate 100 Mg Tab.er.24h, 100 MG PO DAILY, (Reported) Hydrocodone/Acetaminophen 1 Each Tablet, 1 EACH PO QID PRN for PAIN-MODERATE, ( Reported) Lisinopril 10 Mg Tablet, 10 MG PO DAILY, (Reported) Zolpidem Tartrate 10 Mg Tablet, 10 MG PO HS, (Reported) Patient Home Medication List Home Medication List Reviewed: Yes Constitutional: see HPI EENTM: no symptoms reported Respiratory: no symptoms reported Cardiovascular: no symptoms reported Gastrointestinal: no symptoms reported Genitourinary: no symptoms reported : No Musculoskeletal: no symptoms reported Skin: no symptoms reported Psychiatric/Neurological: See HPI Past Akojmcu-Tszrff-Yupaul Hx Past Med/Social Hx: Reviewed and Corrections made Patient Social History Alcohol Use: Denies Use Recreational Drug Use: No Smoking Status: Unknown if Ever Smoked 2nd Hand Smoke Exposure: No Recent Foreign Travel: No Contact w/Someone Who Travel: No Recent Infectious Disease Expo: No Recent Hopitalizations: No Physical Abuse: No Sexual Abuse: No Immunizations Up To Date Tetanus Booster (TDap): Unknown PED Vaccines UTD: Yes Date of Influenza Vaccine: Jul 05, 2017 Seasonal Allergies Seasonal Allergies: No Past Medical History Surgeries: Yes (OVARIAN CYSTECTOMY, 2 'S, ORBIAL FX, WISDOM TEETH) Appendectomy, Section, Gallbladder, Hysterectomy Respiratory: Yes (ASTHMA-( A CHILD) ONLY USES INHALER 4X PER YEAR) Asthma Cardiac: Yes High Cholesterol, Hypertension Neurological: Yes (LAST SEIZURE 10/2017) Seizure Disorder Reproductive Disorders: No 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 Sexually Transmitted Disease: No HIV/AIDS: No Genitourinary: No Gastrointestinal: Yes Gastroesophageal Reflux, Chronic Constipation, Pancreatitis, Gall Bladder Disease Musculoskeletal: Yes (CHRONIC GENERALIZED PAIN) Chronic Back Pain Endocrine: No HEENT: No Loss of Vision: Bilateral Hearing Impairment: Denies Cancer: No Psychosocial: Yes (OVERDOSES) Anxiety, Suicide Attempts Nursing Suicide Risk Score: 0 Integumentary: No Blood Disorders: No Adverse Reaction/Blood Tranf: No Family Medical History No Pertinent Family Hx Physical Exam Vital Signs - First Documented 04/12/18 00:36 Temp 98.6 Pulse 98 Resp 14 B/P (MAP) 145/106 (119) Pulse Ox 97 O2 Delivery Room Air Capillary Refill : Less Than 3 Seconds Height, Weight, BMI Height: 5'1.00" Weight: 165lbs. 5.0oz. 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 II-XII nml as tested, no motor/sensory deficits, other (somnolent, disoriented to month, difficulty focusing on conversation, falls asleep in mid sentence) Appearance/Memory: appropriate appearance Behavior/Eye Contact: avoids eye contact Thoughts/Hallucinations: no apparent hallucination Skin: normal color, warm/dry Progress/Results/Core Measures Results/Orders Lab Results Laboratory Tests Test 04/12/18 00:25 04/12/18 00:40 Range/Units White Blood Count 7.4 4.3-11.0 10^3/uL Red Blood Count 4.37 4.35-5.85 10^6/uL Hemoglobin 13.0 11.5-16.0 G/DL Hematocrit 37 35-52 % Mean Corpuscular Volume 86 80-99 FL Mean Corpuscular Hemoglobin 30 25-34 PG Mean Corpuscular Hemoglobin Concent 35 32-36 G/DL Red Cell Distribution Width 12.2 10.0-14.5 % Platelet Count 356 130-400 10^3/uL Mean Platelet Volume 9.5 7.4-10.4 FL Neutrophils (%) (Auto) 42 42-75 % Lymphocytes (%) (Auto) 48 H 12-44 % Monocytes (%) (Auto) 7 0-12 % Eosinophils (%) (Auto) 2 0-10 % Basophils (%) (Auto) 0 0-10 % Neutrophils # (Auto) 3.1 1.8-7.8 X 10^3 Lymphocytes # (Auto) 3.5 1.0-4.0 X 10^3 Monocytes # (Auto) 0.5 0.0-1.0 X 10^3 Eosinophils # (Auto) 0.2 0.0-0.3 10^3/uL Basophils # (Auto) 0.0 0.0-0.1 10^3/uL Sodium Level 140 135-145 MMOL/L Potassium Level 3.3 L 3.6-5.0 MMOL/L Chloride Level 103 98-107 MMOL/L Carbon Dioxide Level 25 21-32 MMOL/L Anion Gap 12 5-14 MMOL/L Blood Urea Nitrogen 11 7-18 MG/DL Creatinine 0.77 0.60-1.30 MG/DL Estimat Glomerular Filtration Rate > 60 BUN/Creatinine Ratio 14 Glucose Level 109 H 70-105 MG/DL Calcium Level 10.1 8.5-10.1 MG/DL Magnesium Level 2.1 1.8-2.4 MG/DL Total Bilirubin 0.4 0.1-1.0 MG/DL Aspartate Amino Transf (AST/SGOT) 36 H 5-34 U/L Alanine Aminotransferase (ALT/SGPT) 38 0-55 U/L Alkaline Phosphatase 88 40-136 U/L Total Protein 7.9 6.4-8.2 GM/DL Albumin 4.6 H 3.2-4.5 GM/DL TSH [place] Testing 0.83 0.35-4.94 UIU/ML Salicylates Level < 5.0 L 5.0-20.0 MG/DL Acetaminophen Level 25 10-30 UG/ML Serum Alcohol < 10 <10 MG/DL Urine Color YELLOW Urine Clarity SLIGHTLY CLOUDY Urine pH 5 5-9 Urine Specific [place] 1.025 H 1.016-1.022 Urine Protein 2+ H NEGATIVE Urine Glucose (UA) NEGATIVE NEGATIVE Urine Ketones 1+ H NEGATIVE Urine Nitrite NEGATIVE NEGATIVE Urine Bilirubin NEGATIVE NEGATIVE Urine Urobilinogen NORMAL NORMAL MG/DL Urine Leukocyte Esterase 1+ H NEGATIVE Urine RBC (Auto) NEGATIVE NEGATIVE Urine RBC NONE /HPF Urine WBC RARE /HPF Urine Squamous Epithelial Cells 5-10 /HPF Urine Crystals PRESENT H /LPF Urine Calcium Oxalate Crystals FEW H /LPF Urine Bacteria TRACE /HPF Urine Casts NONE /LPF Urine Mucus MODERATE H /LPF Urine Culture Indicated NO Urine Opiates Screen POSITIVE H NEGATIVE Urine Oxycodone Screen POSITIVE H NEGATIVE Urine Methadone Screen NEGATIVE NEGATIVE Urine Propoxyphene Screen NEGATIVE NEGATIVE Urine Barbiturates Screen NEGATIVE NEGATIVE Ur Tricyclic Antidepressants Screen NEGATIVE NEGATIVE Urine Phencyclidine Screen NEGATIVE NEGATIVE Urine Amphetamines Screen POSITIVE H NEGATIVE Urine Methamphetamines Screen NEGATIVE NEGATIVE Urine Benzodiazepines Screen POSITIVE H NEGATIVE Urine Cocaine Screen NEGATIVE NEGATIVE Urine Cannabinoids Screen NEGATIVE NEGATIVE My Orders Orders - MIGUEL POOL MD Acetaminophen (04/12/18 00:40) Alcohol (04/12/18 00:40) Cbc With Automated Diff (04/12/18 00:40) Comprehensive Metabolic Panel (04/12/18 00:40) Magnesium (04/12/18 00:40) Thyroid Analyzer (04/12/18 00:40) Ua Culture If Indicated (04/12/18 00:40) Saline Lock/Iv-Start (04/12/18 00:40) Ekg Tracing (04/12/18 00:40) Monitor-Rhythm Ecg Trace Only (04/12/18 00:40) Saline Lock/Iv-Start (04/12/18 00:40) Ns Iv 1000 Ml (Sodium Chloride 0.9%) (04/12/18 00:40) Drug Screen Stat (Urine) (04/12/18 00:44) Salicylate (04/12/18 00:44) Medications Given in ED Current Medications Medications Dose Ordered Sig/[place] Route Start Time Stop Time Status Last Admin Dose Admin Sodium Chloride 1,000 ml @ 0 mls/hr Q0M ONCE IV 04/12/18 00:40 04/12/18 00:44 DC 04/12/18 01:11 0 MLS/HR Vital Signs/I&O 04/12/18 04/12/18 04/12/18 00:36 02:05 03:00 Temp 98.6 97.5 Pulse 98 87 117 Resp 14 14 24 B/P (MAP) 145/106 (119) 127/89 156/108 (124) Pulse Ox 97 94 94 O2 Delivery Room Air Room Air Room Air Blood Pressure Mean: 119 Progress Progress Note #1: Time: 01:30 Progress Note Patient received a liter of IV fluids. Case was discussed with Dr. Du who agrees with admission. Patient did become more alert throughout the course of her ER stay. She became angry and agitated that she was being asked to stay and that her family was initially not allowed to come back to the room and left the hospital. 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 Vital signs remained stable. Progress Note #2: Time: 02:03 Progress Note supervisor rolling room discussed the case with the patient. Patient is angry about being admitted. She was informed that police would be called if she chose to leave. She wishes to speak with police and a police presence was requested in the ER for further discussion. During discussion, patient told supervisor rolling room that she took 6 hydrocodone, 3 Lyrica, and additionally 2 doses of Ambien. Progress Note #3: Time: 03:05 Progress Note Patient has now been transferred to the ICU. Plan is to obtain a four-hour Tylenol level and medically clear her. At that point she may then receive her behavioral health screening. Patient was refusing admission. Law-enforcement was called back at her request as she was informed law-enforcement would be notified if she left the hospital. Patient was exhibiting very strong features of borderline personality disorder with fairly extreme measures to manipulate. She was using circular logic and threatening legal action on all parties involved. With each individual she spoke with she demanded to speak with the higher level of staff. She was attempting to split staff during these manipulative attempts. When it was time to transfer the patient to the ICU she refused to comply with instructions and laid on the floor of the exam room. Patient refused to move and could not be allowed to remain on the floor as she needed to be moved to the ICU for further care. It became necessary for police to lift her off the floor. As police gently lifted her into the bed she claimed assault despite being informed very clearly that she was in police protective custody. Police in no way harmed the patient. Patient was escorted to the ICU by multiple police officers. It is also worth noting at this time that patient exhibited some similar features in 2011 when she was escorted to [facility] in handcuffs by police. During the course of her ER stay she threatened lawsuit to just about everyone involved. She also claimed that staff took her possessions and gave them to her ex-. However, patient had no items removed from her possession and no items were delivered to her ex-. Initial ECG Impression Date: Apr 12, 2018 Initial ECG Impression Time: 00:35 Initial ECG Rate: 105 Initial ECG Rhythm: S.Tach Comment Sinus tachycardia with no ST elevation or depression. No abnormal intervals or axis deviation. Departure Communication (Admissions) Time/Spoke to Admitting Phy: 01:25 Dr. Du Impression Primary Impression: Multiple drug overdose Qualified Codes: T50.904A - Poisoning by unspecified drugs, medicaments and biological substances, undetermined, initial encounter Additional Impressions: Suicidal ideation Somnolence Manipulative behavior Disposition: ADMITTED INPATIENT Condition: Improved Admissions Decision to Admit Reason: Admit from ER (General) Decision to Admit/Date: Apr 12, 2018 Time/Decision to Admit Time: 00:20 Departure-Patient Inst. Referrals: JOSUÉ CAZARES MD (PCP/Family) Primary Care Physician MIGUEL POOL MD Apr 12, 2018 01:43
[2018-04-12 01:44] LABS: AMPHETAMINE SCREEN, URINE POSITIVE (NEGATIVE); BACTERIA,URINE TRACE /HPF; BARBITURATE SCREEN URINE NEGATIVE (NEGATIVE); BENZODIAZEPINES SCREEN URINE POSITIVE (NEGATIVE); CALCIUM OXALATE CRYSTALS,UR FEW /LPF; CANNABINOID SCREEN, URINE NEGATIVE (NEGATIVE); COCAINE SCREEN URINE NEGATIVE (NEGATIVE); METHAMPHETAMINE SCREEN URINE S NEGATIVE (NEGATIVE); OPIATE SCREEN URINE POSITIVE (NEGATIVE); WBC,URINE RARE /HPF
[2018-04-12 01:45] LABS: METHADONE STAT NEGATIVE (NEGATIVE); OXYCODONE STAT POSITIVE (NEGATIVE); PROPOXYPHENE STAT NEGATIVE (NEGATIVE); TRICYCLIC ANTIDEPRESSANTS SCRE NEGATIVE (NEGATIVE)
--- OUTSIDE RECORDS SUMMARY | 2018-04-12 02:02 | XMS REPORT | Clinical Summary ---
Author Author [facility] Organization [facility] Address Unknown Phone Unavailable Care Team Providers Care Residential Monitor Name Role Phone Ric Maya MD PCP Tami Barr APRN- Unavailable Anika Barrios MD Unavailable Source Comments Some departments are not documenting in the electronic medical record. If you do not see the information that you expected, contact Release of Information in the Health Information Management department at [phone] for further assistance in locating additional records.[place] [...] Status Date Albuterol (Refill) 90 Inhale 1 [place] by mouth Active mcg/Actuation IN Aero Every [...]
[2018-04-12] MEDS ORDERED: NS IV 1000 ML 1,000 ML ONE (03:02)
[2018-04-12] MEDS ORDERED: NALOXONE 0.4 MG/ML 1 ML (NARCAN) VIAL IV PRN (03:30)
[2018-04-12] MEDS ORDERED: NS IV 1000 ML 1,000 ML IV SCH (03:30)
[2018-04-12] MEDS ORDERED: ONDANSETRON 4 MG/2 ML (SDV) Z0FRAN IV PRN (03:30)
[2018-04-12 04:54] LABS: BASOPHILS % (AUTO) 1 % (0-10); EOSINOPHILS # (AUTO) 0.1 10^3/uL (0.0-0.3); EOSINOPHILS % (AUTO) 2 % (0-10); HEMATOCRIT 36 % (35-52); HEMOGLOBIN 12.6 G/DL (11.5-16.0); LYMPHOCYTES # (AUTO) 3.7 X 10^3 (1.0-4.0); LYMPHOCYTES % (AUTO) 55 % (12-44); MEAN CORPUSCULAR HEMOGLOBIN 30 PG (25-34); MEAN CORPUSCULAR HGB CONC 35 G/DL (32-36); MEAN CORPUSCULAR VOLUME 86 FL (80-99); MEAN PLATELET VOLUME 9.4 FL (7.4-10.4); MONOCYTES # (AUTO) 0.6 X 10^3 (0.0-1.0); MONOCYTES % (AUTO) 8 % (0-12); NEUTROPHILS # (AUTO) 2.4 X 10^3 (1.8-7.8); NEUTROPHILS % (AUTO) 35 % (42-75); PLATELET COUNT 322 10^3/uL (130-400); RED CELL DISTRIBUTION WIDTH 12.1 % (10.0-14.5); WHITE BLOOD COUNT 6.8 10^3/uL (4.3-11.0)
[2018-04-12 05:14] LABS: ACETAMINOPHEN 23 UG/ML (10-30); ALANINE AMINOTRANSFERASE 38 U/L (0-55); ALBUMIN 4.3 GM/DL (3.2-4.5); ALKALINE PHOSPHATASE 80 U/L (40-136); BILIRUBIN,TOTAL 0.4 MG/DL (0.1-1.0); BUN/CREATININE RATIO 13; CALCIUM 9.4 MG/DL (8.5-10.1); CARBON DIOXIDE 21 MMOL/L (21-32); CHLORIDE 105 MMOL/L (98-107); GFR ESTIMATED > 60; GLUCOSE 114 MG/DL (70-105); POTASSIUM 3.3 MMOL/L (3.6-5.0); SODIUM 138 MMOL/L (135-145); TOTAL PROTEIN 7.4 GM/DL (6.4-8.2)
--- NOTE | 2018-04-12 06:13 | Pulmonary Consultation ---
History of Present Illness History of Present Illness Date of Consultation 04/12/18 06:05 Time Seen by Provider: 06:05 Date of Admission History of Present Illness 42yo poor historian with hx of drug use and psych issues depression, bipolar disorder, and borderline personality disorder presents secondary to OD. Denies suicidal ideation Pt was very lethargic upon ED arrival. Unable to obtain ROS. Patient is on numerous controlled substances. Allergies and Home Medications Allergies Coded Allergies: tramadol (Verified Allergy, Mild, SOB/CHEST TIGHTNESS, 12/29/17) carbamazepine (Unverified Allergy, Unknown, 06/17/11) divalproex sodium (Unverified Allergy, Unknown, 06/10/15) ketorolac (Unverified Allergy, Unknown, 06/10/15) levetiracetam (Unverified Allergy, Unknown, 06/10/15) oxcarbazepine (Unverified Allergy, Unknown, 06/10/15) phenytoin (Unverified Allergy, Unknown, 06/10/15) quetiapine (Verified Allergy, Unknown, 12/29/17) terbutaline (Verified Adverse Reaction, Severe, 09/03/08) "STOPPED MY BREATHING" trazodone (Verified Adverse Reaction, Intermediate, 09/03/08) "SLOWS MY BREATHING" Home Medications Buprenorphine 1 Each Patch.tdwk, 1 PATCH TD [place], (Reported) Diazepam 5 Mg Tablet, 5 MG PO Q72H, (Reported) Hydrocodone/Acetaminophen 1 Each Tablet, 1 TAB PO Q6H PRN for PAIN-MODERATE, ( Reported) Ibuprofen 200 Mg Tablet, 400 MG PO TID PRN for PAIN-MILD, (Reported) Pregabalin 150 Mg Capsule, 150 MG PO HS, (Reported) Zolpidem Tartrate 10 Mg Tablet, 10 MG PO HS PRN for SLEEP, (Reported) Past Wqexdzh-Vrxtrw-Ighwks Hx Past Med/Social Hx: Reviewed and Corrections made Patient Social History Alcohol Use: Denies Use Recreational Drug Use: No Smoking Status: Never a Smoker 2nd Hand Smoke Exposure: No Recent Foreign Travel: No Contact w/Someone Who Travel: No Recent Infectious Disease Expo: No Recent Hopitalizations: No Physical Abuse: No Sexual Abuse: No Immunizations Up To Date Tetanus Booster (TDap): Unknown PED Vaccines UTD: Yes Date of Influenza Vaccine: Jul 05, 2017 Seasonal Allergies Seasonal Allergies: No Past Medical History Surgeries: Yes (OVARIAN CYSTECTOMY, 2 'S, ORBIAL FX, WISDOM TEETH) Appendectomy, Section, Gallbladder, Hysterectomy Respiratory: Yes (ASTHMA-( A CHILD) ONLY USES INHALER 4X PER YEAR) Asthma Currently Using CPAP: No Currently Using BIPAP: No Cardiac: Yes High Cholesterol, Hypertension Neurological: Yes (LAST SEIZURE 10/2017) Seizure Disorder : No 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 ex advises that the patient is very manipulative and can talk her way out of anything. Pt. has a hx. of previous suicide attempts. She advises tonight that she was experiencing both suicidal and homicidal thoughts but later tried to change her story advising she was not suicidal. Integumentary: No Blood Disorders: No Adverse Reaction/Blood Tranf: No Family Medical History No Pertinent Family Hx Review of Systems Time Seen by Provider: 13:17 Sepsis Event Evaluation Height, Weight, BMI Height: 5'1.00" Weight: 168lbs. 0.0oz. 76.719811zv; 31.7 BMI Method:Stated Exam Exam Vital Signs Date Time Temp Pulse Resp B/P (MAP) Pulse Ox O2 Delivery O2 Flow Rate FiO2 04/12/18 05:05 137/86 (103) 04/12/18 04:15 123 151/111 (124) 04/12/18 03:27 94 Room Air 04/12/18 03:00 97.5 117 24 156/108 (124) 94 Room Air 04/12/18 02:05 87 14 127/89 94 Room Air 04/12/18 00:36 98.6 98 14 145/106 (119) 97 Room Air I & O 04/12/18 07:00 Intake Total 1020 ml Balance 1020 ml Height & Weight Height: 5'1.00" Weight: 168lbs. 0.0oz. 76.734097cj; 31.7 BMI Method:Stated General Appearance: Anxious, Mild Distress HEENT: PERRL/EOMI, Normal ENT Inspection Neck: Full Range of Motion, Normal Inspection, Supple Respiratory: Chest Non Tender, Lungs Clear, Normal Breath Sounds, No Accessory Muscle Use, No Respiratory Distress Cardiovascular: Regular Rate, Rhythm, No Edema, No Gallop Capillary Refill: Less Than 3 Seconds Gastrointestinal: non tender, soft Extremity: Normal Capillary Refill Neurologic/Psychiatric: Depressed Affect, Disoriented Skin: Normal Color, Warm/Dry Lymphatic: No Adenopathy Results Lab Laboratory Tests 04/12/18 00:25 04/12/18 04:35 Assessment/Plan Assessment/Plan -OD- Multiple drug OD -Unknown what exactly she took Suicidal ideation Bipolar, borderline personality disorder -Consult psych. FELIX YOUNG DO Apr 12, 2018 06:13
[2018-04-12] MEDS ORDERED: ZOLP10TA5 PO (09:07)
[2018-04-12] MEDS ORDERED: HYDR-3820 PO (09:28)
[2018-04-12] MEDS ORDERED: PREG150C PO (09:28)
[2018-04-12] MEDS ORDERED: BUPR1PAT23 TD (09:28)
--- NOTE | 2018-04-12 09:29 | Short Stay Summary-Hospitalist ---
History of Present Illness HPI/Chief Complaint Pt is a 42yoCF with an extensive psychiatric history who presented to the hospital for intentional overdose. She refused to participate in my exam and interview and the only thing she would say to me was "Why am I so tired?" but otherwise offered not history. Thus history is obtained solely from the records. She was brought to the ER by EMS after the police requested behavioral evaluation. I am unsure why police where on the scene to start with. Per ER note she reported to her daughter that she had overdosed with the intention of "not waking up." When asked about this today she did not answer me and sat with her eyes closed. I did discuss with her nurse who states she was awake and alert just prior to my exam and very conversant. Source: patient Exam Limitations: clinical condition Date Seen 04/12/18 Time Seen by Provider: 07:30 Attending Physician Mahin Du MD PCP Ric Maya MD Referring Physician Date of Admission Apr 12, 2018 at 01:30 Home Medications & Allergies Home Medications Reviewed patient Home Medication Reconciliation performed by pharmacy medication reconciliations emergency medical technician and/or nursing. Patients Allergies have been reviewed. Allergies Allergies Coded Allergies tramadol (Verified Allergy, Mild, SOB/CHEST TIGHTNESS, 12/29/17) carbamazepine (Unverified Allergy, Unknown, 06/17/11) divalproex sodium (Unverified Allergy, Unknown, 06/10/15) ketorolac (Unverified Allergy, Unknown, 06/10/15) levetiracetam (Unverified Allergy, Unknown, 06/10/15) oxcarbazepine (Unverified Allergy, Unknown, 06/10/15) phenytoin (Unverified Allergy, Unknown, 06/10/15) quetiapine (Verified Allergy, Unknown, 12/29/17) terbutaline (Verified Adverse Reaction, Severe, 09/03/08) "STOPPED MY BREATHING" trazodone (Verified Adverse Reaction, Intermediate, 09/03/08) "SLOWS MY BREATHING" Past Mmjfaak-Oiskfx-Gtuwjz Hx Past Med/Social Hx: Reviewed and Corrections made Patient Social History Alcohol Use: Denies Use Recreational Drug Use: No Smoking Status: Never a Smoker 2nd Hand Smoke Exposure: No Physical Abuse Screen: No Sexual Abuse: No Recent Foreign Travel: No Contact w/other who traveled: No Recent Hopitalizations: No Recent Infectious Disease Expo: No Immunizations Up To Date Tetanus Booster (TDap): Unknown Pediatric: Yes Date of Influenza Vaccine: Jul 05, 2017 Seasonal Allergies Seasonal Allergies: No Past Medical History Surgeries: Appendectomy, Section, Gallbladder, Hysterectomy Currently Using CPAP: No Currently Using BIPAP: No Cardiac: High Cholesterol, Hypertension Neurological: Seizure Disorder : No Reproductive: No Sexually Transmitted Disease: No HIV/AIDS: No Hysterectomy Gastrointestinal: Gastroesophageal Reflux, Chronic Constipation, Pancreatitis, Gall Bladder Disease Musculoskeletal: Chronic Back Pain Loss of Vision: Bilateral Hearing Impairment: Denies Psychosocial: Pseudo Seizures, Anxiety, PTSD, Suicide Attempts, Personality Disorder, Depression History of Blood Disorders: No Adverse Reaction to Blood Lauren: No Family History Reviewed Nursing Family Hx No Pertinent Family Hx Review of Systems ROS-Unable to Obtain: Refused to participate in exam Constitutional: see HPI Physical Exam Physical Exam Vital Signs Vital Signs - First Documented 04/12/18 04/12/18 00:36 07:00 Temp 98.6 Pulse 98 Resp 14 B/P (MAP) 145/106 (119) Pulse Ox 97 O2 Delivery Room Air O2 Flow Rate 2.00 Capillary Refill : Less Than 3 Seconds Height, Weight, BMI Height: 5'1.00" Weight: 168lbs. 0.0oz. [id number]; 31.7 BMI Method:Stated General Appearance: No Apparent Distress, WD/WN Neck: Normal Inspection, Supple Respiratory: Lungs Clear, No Respiratory Distress Cardiovascular: Regular Rate, Rhythm, No Murmur Gastrointestinal: Normal Bowel Sounds, Non Tender, Soft Extremity: Non Tender, No Calf Tenderness, No Pedal Edema Neurologic/Psychiatric: Other (awake and alert- appears somnolent) Skin: Normal Color, Warm/Dry Results Results/Procedures Labs Laboratory Tests 04/12/18 00:25 04/12/18 04:35 Patient resulted labs reviewed. Short Stay Diagnosis Discharge Diagnosis-Short Stay Admission Diagnosis Intentional overdose Final Discharge Diagnosis Intentional overdose Conclusion Plan See below Diagnosis/Problems Diagnosis/Problems (1) Multiple drug overdose Status: Acute Assessment & Plan: History of borderline personality Behavior appears to be manipulative to me given varying participation in exam within minutes of each other Would very likely benefit from inpatient psychiatric admission Social work consulted to assist with placement [facility] line contacted for evaluation Cristi Etienne evaluated at length and deemed not at risk for self harm or harm to others, does not recommend involuntary admission I discussed with Cristi my concerns about patient's impulsive behavior and manipulative tendencies and my desire for her to receive inpatient psychiatric care I attempted to call [facility] to arrange for physician to physician transfer but was told that was not possible and all transfers had to come from mental health screener Discussed with patient when more alert and she adamantly denies any desire to harm self and states that her medication error was unintentional, 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 wanted " I discussed with patient's permission her case with her ex- Femi as did Cristi Etienne, Femi offer to provide 24/7 supervision at home with assistance from another family member should she discharge home Cristi Etienne has arranged for welfare phone call [facility] and in person welfare check tomorrow with further checks pending after that visit Though I am reluctant to discharge to home and feel she would be best served by and inpatient psychiatric admission I have exhausted all options to facilitate that level of care and have no recourse but to discharge home with the above plan I advised patient and Femi that should she have any feelings of self harm she is to immediately contact [facility] or return to an emergency room I attempted to call her PCP but he is out of office today Qualifiers: Qualified Codes: T50.904A - Poisoning by unspecified drugs, medicaments and biological substances, undetermined, initial encounter (2) Suicidal ideation Status: Acute Assessment & Plan: Reported per family Ex- received texts from son and called police due to concerns about her safety Pt's mother called and reported this is recurrent and she has had roughly 7 previous episodes Clinical Quality Measures DVT/VTE Risk/Contraindication: Risk Factor Score Per Nursin RFS Level Per Nursing on Admit: 2=Moderate HECTOR CHAVIRA MD Apr 12, 2018 9:29 am
[2018-04-12] MEDS ORDERED: IBUP-30 PO (09:36)
--- NOTE | 2018-04-12 15:21 | Discharge Inst-Simple/Standard ---
Discharge Inst-Standard Patient Instructions/Follow Up Plan of Care/Instructions/FU: Please take your medications only as intended. Please follow up with Mental Health as scheduled. Activity as Tolerated: Yes Discharge Diet: No Restrictions Return to The Hospital For: Suicidal thoughts, confusion, if you are feeling worse. HECTOR CHAVIRA MD Apr 12, 2018 3:21 pm
--- OUTSIDE RECORDS SUMMARY | 2018-04-22 10:01 | XMS REPORT | Clinical Summary ---
Author Author [facility] Organization [facility] Address Unknown Phone Unavailable Care Team Providers Care Microfilm Equipment Inspector Name Role Phone Ric Maya MD PCP Tami Barr APRN- Unavailable Anika Barrios MD Unavailable Source Comments Some departments are not documenting in the electronic medical record. If you do not see the information that you expected, contact Release of Information in the Health Information Management department at [phone] for further assistance in locating additional records.[facility] Allergies Active Allergy Reactions Severity Noted [...] Status Date Albuterol (Refill) 90 Inhale 1 [place] by mouth Active mcg/Actuation IN Aero Every [...]
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
== END 2018-04-12 15:34 | disposition home or self-care (01) ==
LOC: EDUNIT# 00:20 → ER 00:22 → ICU 01:30 → UNDOADMIN 01:30 → ICU 14:02 → UNDODISIN 15:34
PROVIDERS: ADMIT Internal Medicine; ATTEND Internal Medicine
DX: T40.2X2A Poisoning by other opioids, intentional self-harm, initial encounter (principal); T42.6X2A Poisoning by other antiepileptic and sedative-hypnotic drugs, intentional self-harm, initial encounter; R40.0 Somnolence; R00.0 Tachycardia, unspecified; R46.89 Other symptoms and signs involving appearance and behavior; F31.9 Bipolar disorder, unspecified; F41.9 Anxiety disorder, unspecified; F60.3 Borderline personality disorder; J45.909 Unspecified asthma, uncomplicated; I10 Essential (primary) hypertension; E78.00 Pure hypercholesterolemia, unspecified; G40.909 Epilepsy, unspecified, not intractable, without status epilepticus; K21.9 Gastro-esophageal reflux disease without esophagitis; K59.09 Other constipation; G89.29 Other chronic pain; M54.9 Dorsalgia, unspecified; Z87.19 Personal history of other diseases of the digestive system
CPT/HCPCS: 36415; 80053; 80306; 80320; 80329; 81000; 83735; 84100; 84443; 85025; 87081; 93005; 93041; 96360; G0378

== ENCOUNTER → 2018-11-06 | Outpatient (CLI) | payer MEDICARE ==
[~2018-11-06] VITALS: Ht 152.4 cm; Wt 79.4 kg
[~2018-11-06] MED LIST changes: -ARIP10TA2 PO; -ARIP30TA PO; -ATOR20TA66 PO; -BUPR1PAT3; +CATHETER FLUSH 10 ML SYR IV PRN; -CLON1TAB2; -DIAZ-345 PO; -DIAZ5TAB3 PO; -ESTR-21 PO; -ESTR1TAB24; -ESTR2TAB PO; -FAMO-119 PO; -FENT1PAT11 TD; -GUAN2TAB PO; -HYDR-2889 PO; -HYDR-3820 PO; -HYDR-753 PO; -HYDR100T24 PO; -HYDR50CA3; -LAMO100T69 PO; -LEVE500T6; -LIDO700A45 TP; -LISI10TA2; -LISI10TA2 PO; -LITH600C; -LRZ1T; -LTH150C; -METH10TA3 PO; -NF-CYM60C; -NITR-65 PO; -NSTU5; -PHEN30CA2 PO; -PHN100C; -PRD20T PO; -PRM50SU PR; -PROM25TA14 PO; -QTP200T; +REGADENOSON 0.4 MG/5 ML SYR (LEXISCAN) IV ONE; -SERT100T PO; -SERT50TA; -SERT50TA2 PO; -SERT50TA9 PO; -TERBIN250T PO; -VICODIN 7.5/500; -ZLP10T; -ZOLP10TA PO; -ZOLP10TA5 PO
[2018-11-06 10:02] VITALS: BP 137/74
[2018-11-06 10:04] VITALS: BP 172/82
--- NOTE | 2018-11-07 07:54 | STRESS TEST ---
DATE OF SERVICE: 11/06/2018 LEXISCAN MYOVIEW STRESS TEST REFERRING PHYSICIAN: Dr. Ric Maya. Baseline heart rate is 66. Baseline blood pressure is 119/90. Baseline EKG is sinus rhythm with no ischemic changes. In summary, the patient received 10.37 mCi of technetium-99 Myoview and the resting images were obtained. Then, the patient received 0.4 mg of Lexiscan followed by 30.6 mCi of technetium-99 Myoview. Throughout the test, there were no EKG changes. The resting and stress images were reviewed and compared in the short axis, horizontal long axis and vertical long axis views. Review of the images showed reversible ischemia involving the whole anterior wall, anterolateral and anterior septum. SSS is 12. SDS is 12. TID value 1.04. On the gated images, the left ventricle appeared to be in normal size with normal contractility. Calculated ejection fraction is 77%. CONCLUSION: 1. The patient tolerated the Lexiscan well. 2. Reversible ischemia involving the whole anterior wall, anterolateral wall and the anterior septum. 3. Normal left ventricular size with normal contractility. Calculated ejection fraction is 77%. Job ID: [id number] DocumentID: [id number] Dictated Date: 11/07/2018 07:42:45 Well Logger Date: 11/07/2018 07:53:54 Dictated By: ARTEMIO HOFFMAN MD
== END ==
LOC: CARD 08:31
PROVIDERS: ATTEND Internal Medicine Cardiovascular Disease
DX: R07.9 Chest pain, unspecified (principal); I10 Essential (primary) hypertension; E78.2 Mixed hyperlipidemia; Z82.49 Family history of ischemic heart disease and other diseases of the circulatory system
CPT/HCPCS: 78452; 93017

== ENCOUNTER 2018-11-09 15:26 | Day surgery (SDC) | payer MEDICARE ==
[~2018-11-09] VITALS: Ht 152.4 cm; Wt 81.2 kg
[2018-11-09] VITALS (13 sets, daily range): BP systolic 121–149; BP diastolic 76–95
[~2018-11-09 15:26] MED LIST changes: +ARIP10TA2 PO; +ARIP30TA PO; +ATOR20TA66 PO; +BUPR1PAT23 TD; +BUPR1PAT3; -CATHETER FLUSH 10 ML SYR IV PRN; +CLON1TAB2; +DIAZ-345 PO; +DIAZ5TAB3 PO; +ESTR-21 PO; +ESTR1TAB24; +ESTR2TAB PO; +FAMO-119 PO; +FENT1PAT11 TD; +GUAN2TAB PO; +HYDR-2889 PO; +HYDR-3820 PO; +HYDR-4196 PO; +HYDR100T24 PO; +HYDR50CA3; +IBUP-30 PO; +LAMO100T69 PO; +LEVE500T6; +LIDO700A45 TP; +LISI10TA2; +LISI10TA2 PO; +LITH600C; +LRZ1T; +LTH150C; +METH10TA3 PO; +NF-CYM60C; +NITR-65 PO; +NSTU5; +PHEN30CA2 PO; +PHN100C; +PRD20T PO; +PREG150C PO; +PRM50SU PR; +PROM25TA14 PO; +QTP200T; -REGADENOSON 0.4 MG/5 ML SYR (LEXISCAN) IV ONE; +SERT100T PO; +SERT50TA; +SERT50TA2 PO; +SERT50TA9 PO; +TERBIN250T PO; +VICODIN 7.5/500; +ZLP10T; +ZOLP10TA PO; +ZOLP10TA5 PO
[2018-11-09] MEDS ORDERED: NS IV 1000 ML 1,000 ML IV SCH ×2 (15:31→17:13)
[2018-11-09] MEDS ORDERED: HEParin 1000 UNIT/ML (10ML VIAL) FOR BOLUS ONE (15:33)
[2018-11-09] MEDS ORDERED: LIDOCAINE 1% INJ 20 ML 20 ML VIAL ONE (15:33)
--- NOTE | 2018-11-09 16:03 | Diagnostic Imaging Report ---
Indication: Chest pain Portable chest 3:51 PM Heart size and pulmonary vascularity are normal. Lungs are clear. There are no effusions or pneumothoraces. Impression: Negative chest. Dictated by: Dictated on workstation # [id number]
[2018-11-09 16:12] LABS: HEMOGLOBIN 13.1 G/DL (11.5-16.0); MEAN PLATELET VOLUME 9.1 FL (7.4-10.4); WHITE BLOOD COUNT 7.7 10^3/uL (4.3-11.0)
[2018-11-09] MEDS ORDERED: VERAPAMIL 5 MG/2 ML (CALAN) VIAL IV ONE (16:22)
[2018-11-09] MEDS ORDERED: NITRO DRIP 25000 MCG/D5W 250 ML IV ONE (16:22)
[2018-11-09] MEDS ORDERED: fentaNYL INJECTION 100 MCG/2 ML AMP ONE (16:22)
[2018-11-09] MEDS ORDERED: MIDAZOLAM 5 MG/5 ML (VERSED) VIAL ONE (16:22)
[2018-11-09] MEDS ORDERED: DIAZ5TAB PO (16:24)
[2018-11-09] MEDS ORDERED: FLUT9.9S NS (16:24)
[2018-11-09 16:25] LABS: PROTHROMBIN TIME PATIENT 13.2 SEC (12.2-14.7)
[2018-11-09 16:29] LABS: ALANINE AMINOTRANSFERASE 42 U/L (0-55); ALBUMIN 4.3 GM/DL (3.2-4.5); ALKALINE PHOSPHATASE 71 U/L (40-136); BILIRUBIN,TOTAL 0.4 MG/DL (0.1-1.0); BUN/CREATININE RATIO 11; CALCIUM 10.2 MG/DL (8.5-10.1); CARBON DIOXIDE 24 MMOL/L (21-32); CHLORIDE 103 MMOL/L (98-107); CHOLESTEROL 252 MG/DL (< 200); GFR ESTIMATED > 60; GLUCOSE 105 MG/DL (70-105); HDL CHOLESTEROL 67 MG/DL (40-60); POTASSIUM 3.9 MMOL/L (3.6-5.0); SODIUM 139 MMOL/L (135-145); TOTAL PROTEIN 7.6 GM/DL (6.4-8.2); TRIGLYCERIDES 161 MG/DL (<150); VLDL CHOLESTEROL 32 MG/DL (5-40)
--- NOTE | 2018-11-09 17:10 | Cardiac Procedure Note-CS/ASA ---
Pre-Procedure Note Pre-Op Procedure Note H&P Reviewed The H&P was reviewed, patient examined and no changes noted. Date H&P Reviewed: Nov 09, 2018 Time H&P Reviewed: 16:00 Conscious Sedation Pre-Proced Time 16:00 ASA Score 3 For ASA 3 and 4: Consider anesthesia and medical clearance. Also, for patients with a history of failed moderate sedation consider anesthesia. Airway Lungs Heart ASA score ASA 1: a normal healthy patient ASA 2: a patient with a mild systemic disease (mid diabetes, controlled hypertension, obesity x ASA 3: a patient with a severe systemic disease that limits activity (angina , COPD, prior Myocardial infarction) ASA 4: a patient with an incapacitating disease that is a constant threat to life (CHF, renal failure) ASA 5: a moribund patient not expected to survive 24 hrs. (ruptured aneurysm) ASA 6: a declared brain- patient whose organs are being harvested. For emergent operations, add the letter E after the classification Mallampati Classification Grade 3 Sedation Plan Analgesia, Amnesia, Plan communicated to team members, Discussed options with patient/fam, Discussed risks with patient/fam The patient is an appropriate candidate to undergo the planned procedure, sedation, and anesthesia. The patient immediately re-assessed prior to indication. ARTEMIO HOFFMAN MD Nov 09, 2018 17:10
--- NOTE | 2018-11-09 17:13 | Cardiac Cath Report ---
Cardiac Cath Report Physician (s)/Supervisor Coffee (s) Physician ARTEMIO HOFFMAN MD Pre-Procedure Diagnosis Pre-Procedure Diagnosis: chest pain, coronary artery disease Post-Procedure Note Procedure Start Date: Nov 09, 2018 Name of Procedure: left heart catheterization Findings/Procedure Note PROCEDURE NOTE: 43 years old lady with strong family history of heart disease had an abnormal stress test, she was seen earlier today in my office has been having recurrent episode of chest pain including this morning. I sent her directly to the catheter lab for cardiac catheterization today After explaining the procedure to the patient, all pros and cons were explained , all questions were answered. The patient signed the consent and then she was placed on the cardiac catheterization laboratory. Groin was prepped SL fashion local anesthesia was used. Sheath placed in the Right radial artery, [place] catheter was used crossed over to the left ventricular cavity, pressure was measured no left ventriculogram was done, pullback LV to aorta was done, the catheter was advanced to the right coronary artery and right coronary angiogram was done then was turned to the left main coronary artery and left coronary system angiogram was done. Then the catheter was removed At the end of the procedure the sheath was removed. Closure device was used/ vascular band FINDINGS: Hemodynamics LV 110/3, end-diastolic pressure of 3 Aorta 132/92 mean of 110 ANATOMY: Left Main is free of obstructive disease Left Anterior Descending is smaller artery with some tortuosity no obstructive disease Left Circumflex has mild disease nonobstructive disease Right Coronory Artery is dominant artery with mild disease distally LV Gram was not done, pressure was measured CONCLUSION: 1. Mild coronary artery disease nonobstructive disease 2. Normal left ventricular end-diastolic pressure DISCUSSION AND RECOMMENDATION: patient had abnormal stress test probably due to extracardiac attenuation, her recurrent chest pain is unlikely to be cardiac in nature Anesthesia Type: Conscious Sedation Estimated blood loss (mL): 5 ml Contrast Amount: 30 ml Total Radiation Dose: 235 mGy Post-Procedure Diagnosis Post-operative diagnosis: Chest pain Coronary artery disease Hyperlipidemia Family history of atherosclerosis ARTEMIO HOFFMAN MD Nov 09, 2018 17:13
[2018-11-09] MEDS ORDERED: PANT40SU PO (17:15)
[2018-11-09] MEDS ORDERED: ATOR10TA PO (17:15)
--- NOTE | 2018-11-09 17:16 | Discharge Inst-Post CATH ---
Discharge Inst-CATH/EP Post Cardiac Cath/EP D/C Inst Follow Up/Plan Appointment with Dr. Mullen's office in 4 weeks CARDIAC CATH DISCHARGE INSTRUCTIONS *Hold Metformin for 48 hours post heart cath. ACTIVITY * Go Home directly and rest. * Limit activity of the leg (or wrist if it was used) for 7 days including aerobics, swimming, jogging, bicycling, etc. * Restrict stair-climbing for 7 days if possible, if not, climb up with your non -cath leg, then bring together on the same step. * Avoid lifting, pushing, pulling or excessive movement of the affected extremity for 7 days. * Customary sexual activity may be resumed after 2 days-use caution not to use a position that strains or causes pain to the affected extremity. * No driving for 24 hours. * NO SMOKING. * Avoid straining for bowel movements for 7 days. * Gentle walking on level ground is allowed. * Returning to work will depend on the type of procedure and the results. Your doctor will discuss this with you. CALL YOUR DOCTOR FOR ANY OF THE FOLLOWING: *If bleeding from the puncture site occurs- Apply gentle pressure to site with clean cloth and call your doctor or EMS. * If a knot or lump forms under the skin, increases in size, or causes pain. * If bruising appears to be worsening or moving further down your leg instead of disappearing. * Temperature above 101 F. CARE OF YOUR GROIN INCISION; * Bruising or purple discoloration of the skin near the puncture site is common. * You may shower only, no bathtub bathing for 5 days. Be careful to avoid slipping as your leg may feel stiff. * If a closure device was used on your femoral artery, please see the attached guide regarding care of the device and your leg. * Leave the dressing on, until removed by office staff. CARE OF YOUR WRIST INCISION; * Bruising or purple discoloration of the skin near the puncture site is common. * You may shower. * DO NOT submerge wrist. * Leave dressing on, until removed by office staff.. ARTEMIO MULLEN MD Nov 09, 2018 17:16
[2018-11-09] MEDS ORDERED: diphenhydrAMINE 50 MG/ML INJ (BENADRYL) ONE (17:59)
[2018-11-09] MEDS ORDERED: diphenhydrAMINE 50 MG/ML INJ (BENADRYL) IM ONE (18:00)
--- NOTE | 2018-11-09 18:59 | NUR ---
PT COMPLAINING OF SOB AND CHEST PAIN AT THIS TIME. SPOKE WITH DR. HOFFMAN AND INFORMED HIM OF PTS COMPLAINTS. TELEPHONE ORDERS RECEIVED FOR PROTONIX 40MG PO 1X DOSE AND MAALOX 30ML PO ONCE.
[2018-11-09] MEDS ORDERED: PANTOPRAZOLE 40 MG (PROTONIX) TAB PO NR (19:00)
[2018-11-09] MEDS ORDERED: ANTACID SUSP 30 ML UDC (MYLANTA) PO NR (19:00)
--- NOTE | 2018-11-09 19:45 | NUR ---
INFORMED DR. HOFFMAN THAT PATIENT IS STILL COMPLAINING OF PAIN, PARTICULARLY BACK PAIN AFTER TAKING HER PAIN MEDICATION AND THAT CURRENT BP IS 127/85. NO NEW ORDERS AT THIS TIME AND THAT PATIENT CAN BE D/C'D. PATIENT COMPLAINS OF BACK PAIN THAT SHE STATES "MAKES IT HARD TO TAKE A DEEP BREATHE AND THEN ALSO RADIATES TO LEFT SHOULDER." SHE ATTRIBUTES IT TO LAYING FLAT FOR PROCEDURE DUE TO HER HISTORY OF BACK PAIN. 2114- REVIEWED DISCHARGE INFORMATION WITH PATIENT. INSTRUCTED HER TO CALL DR. HOFFMAN'S OFFICE IN AM FOR APPOINTMENT IN 4 WEEKS AND TO SEEK TREATMENT IF BLEEDING OR HEMATOMA DEVELOPS IN RIGHT WRIST. RIGHT RADIAL PULSE NOTED. RIGHT HAND NORMAL ROM. CAP REFILL RIGHT FINGERS LESS THAN 3. WARMTH OF RIGHT HAND NOTED. NO BLEEDING OR HEMATOMA AT RIGHT WRIST CATH SITE. IV REMOVED. TIP INTACT. PATIENT TOLERATED WELL. PATIENT HAS URINATED AND AMBULATED TO BATHROOM. PATIENT ASSISTED WITH DRESSING AND AT 2134 WHEELED OFF OF FLOOR TO PRIVATE VEHICLE.
== END 2018-11-09 21:35 | disposition home or self-care (01) ==
LOC: CATH 15:26 → 4TH 17:20 → CATH 21:35
PROVIDERS: ATTEND Internal Medicine Cardiovascular Disease
DX: R07.89 Other chest pain (principal); I25.10 Atherosclerotic heart disease of native coronary artery without angina pectoris; I10 Essential (primary) hypertension; E78.2 Mixed hyperlipidemia; R94.39 Abnormal result of other cardiovascular function study; G40.909 Epilepsy, unspecified, not intractable, without status epilepticus; J45.909 Unspecified asthma, uncomplicated; E66.9 Obesity, unspecified; Z68.35 Body mass index [BMI] 35.0-35.9, adult; Z82.49 Family history of ischemic heart disease and other diseases of the circulatory system; Z79.899 Other long term (current) drug therapy
CPT/HCPCS: 36415; 71045; 80053; 80061; 85027; 85610; 85730; 87081; 93458

== ENCOUNTER 2019-07-28 23:59 | Emergency (ER) | payer SELFPAY ==
[~2019-07-28] VITALS: Ht 157 cm; Wt 70.3 kg
[~2019-07-28 23:59] MED LIST changes: +ATOR10TA PO; +DIAZ5TAB PO; +FLUT9.9S NS; +PANT40SU PO
[2019-07-29 00:15] VITALS: BP 138/105
[2019-07-29 00:25] LABS: BASOPHILS % (AUTO) 0 % (0-10); EOSINOPHILS # (AUTO) 0.3 10^3/uL (0.0-0.3); EOSINOPHILS % (AUTO) 3 % (0-10); HEMATOCRIT 36 % (35-52); HEMOGLOBIN 12.2 G/DL (11.5-16.0); LYMPHOCYTES # (AUTO) 2.9 X 10^3 (1.0-4.0); LYMPHOCYTES % (AUTO) 30 % (12-44); MEAN CORPUSCULAR HEMOGLOBIN 29 PG (25-34); MEAN CORPUSCULAR HGB CONC 34 G/DL (32-36); MEAN CORPUSCULAR VOLUME 87 FL (80-99); MEAN PLATELET VOLUME 9.4 FL (7.4-10.4); MONOCYTES # (AUTO) 0.8 X 10^3 (0.0-1.0); MONOCYTES % (AUTO) 9 % (0-12); NEUTROPHILS # (AUTO) 5.6 X 10^3 (1.8-7.8); NEUTROPHILS % (AUTO) 58 % (42-75); PLATELET COUNT 324 10^3/uL (130-400); WHITE BLOOD COUNT 9.6 10^3/uL (4.3-11.0)
[2019-07-29 00:40] LABS: ACETAMINOPHEN 30 UG/ML (10-30); ALANINE AMINOTRANSFERASE 39 U/L (0-55); ALBUMIN 4.4 GM/DL (3.2-4.5); ALKALINE PHOSPHATASE 85 U/L (40-136); BILIRUBIN,TOTAL 0.3 MG/DL (0.1-1.0); BUN/CREATININE RATIO 10; CALCIUM 9.2 MG/DL (8.5-10.1); CARBON DIOXIDE 21 MMOL/L (21-32); CHLORIDE 102 MMOL/L (98-107); CREATININE SERUM 0.68 MG/DL (0.60-1.30); GFR ESTIMATED > 60; GLUCOSE 118 MG/DL (70-105); POTASSIUM 4.3 MMOL/L (3.6-5.0); SALICYLATE < 5.0 MG/DL (5.0-20.0); SODIUM 140 MMOL/L (135-145); TOTAL PROTEIN 8.1 GM/DL (6.4-8.2)
[2019-07-29 00:51] LABS: AMPHETAMINE SCREEN, URINE NEGATIVE (NEGATIVE); BARBITURATE SCREEN URINE NEGATIVE (NEGATIVE); BENZODIAZEPINES SCREEN URINE POSITIVE (NEGATIVE); CANNABINOID SCREEN, URINE NEGATIVE (NEGATIVE); COCAINE SCREEN URINE NEGATIVE (NEGATIVE); HCG,QUALITATIVE URINE NEGATIVE (NEGATIVE); METHADONE STAT NEGATIVE (NEGATIVE); METHAMPHETAMINE SCREEN URINE S NEGATIVE (NEGATIVE); OPIATE SCREEN URINE POSITIVE (NEGATIVE); OXYCODONE STAT POSITIVE (NEGATIVE); PROPOXYPHENE STAT NEGATIVE (NEGATIVE); TRICYCLIC ANTIDEPRESSANTS SCRE NEGATIVE (NEGATIVE)
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
[2019-07-29 01:12] LABS: BILIRUBIN,URINE NEGATIVE (NEGATIVE); CLARITY,URINE CLEAR; COLOR,URINE YELLOW; GLUCOSE, URINE (UA) NEGATIVE (NEGATIVE); KETONES,URINE NEGATIVE (NEGATIVE); LEUKOCYTE ESTERASE ,URINE NEGATIVE (NEGATIVE); NITRITE,URINE NEGATIVE (NEGATIVE); PH,URINE 5.5 (5-9); PROTEIN,URINE NEGATIVE (NEGATIVE)
[2019-07-29 01:20] LABS: BACTERIA,URINE TRACE /HPF; SQUAMOUS EPITHELIAL CELL,UR 0-2 /HPF
[2019-07-29 02:28] VITALS: BP 133/87
== END 2019-07-29 02:28 | disposition home or self-care (01) ==
LOC: EDUNIT# 23:59 → ER 07-29
DX: R56.9 Unspecified convulsions (principal); J45.909 Unspecified asthma, uncomplicated; K21.9 Gastro-esophageal reflux disease without esophagitis; F41.9 Anxiety disorder, unspecified; F43.10 Post-traumatic stress disorder, unspecified; F60.9 Personality disorder, unspecified; F32.9 Major depressive disorder, single episode, unspecified; Z88.8 Allergy status to other drugs, medicaments and biological substances; Z88.5 Allergy status to narcotic agent; Z79.51 Long term (current) use of inhaled steroids; Z90.49 Acquired absence of other specified parts of digestive tract; Z90.710 Acquired absence of both cervix and uterus
CPT/HCPCS: 36415; 80053; 80306; 80320; 80329; 81000; 84703; 85025; 93005; 93041